=== PATIENT | male | born 1940 | race African-American/Black ===

== ENCOUNTER 2020-12-05 15:15 | Inpatient (IN) ==
[2020-12-05 17:12] LABS: Basophils # 0.1 10*3/uL (0.0-0.2); Basophils % 1.1 % (0.0-0.8); Eosinophils # 0.4 10*3/uL (0.0-0.87); Eosinophils % 6.5 % (0.00-10.9); Hematocrit 44.7 VOL% (42.0-52.0); Immature Granulocytes % 0.4 %; Immature Granulocytes Absolute 0.02 #; Lymphocytes # 1.6 10*3/uL (1.4-4.0); Lymphocytes % 29.5 % (21.2-54.2); Mean Corpuscular HGB Conc 31.3 GM/DL (32-36); Mean Corpuscular Volume 95.5 FL (87-102); Mean Platelet Volume 9.9 FL (9.6-12.0); Monocytes % 8.2 % (1.7-12.7); Neutrophils % 54.3 % (38.7-73.9); Platelet Count 204 T/CUMM (130-400); Red Blood Count 4.68 MC/CUMM (3.8-5.5); Red Cell Distribution Width 13.4 % (9.3-17.3); White Blood Count 5.4 T/CUMM (4-12)
[2020-12-05 17:32] LABS: Alanine Aminotransferase 12 U/L (16-61); Albumin 3.6 G/DL (3.4-5.0); Alkaline Phosphatase 61 U/L (45-117); Aspartate Amino Transferase 16 U/L (0-37); Blood Urea Nitrogen 7 MG/DL (7-18); Calcium 8.9 MG/DL (8.5-10.1); Carbon Dioxide 29 MMOL/L (21-32); Estimated Glom Filtration Rate 89 ML/MIN; Glucose 91 MG/DL (74-106); Osmolality,Calculated 270.8 MOS/KG (273-304); Potassium 4.9 MMOL/L (3.5-5.1); Sodium 137 MMOL/L (136-145); Total Protein 7.4 G/DL (6.4-8.2)
[2020-12-05] MEDS ORDERED: DEXTROSE 50% 25 GM/50 ML VIAL IV PRN (20:06)
[2020-12-05] MEDS ORDERED: ACETAMINOPHEN 325 MG TABLET PO PRN (20:06)
[2020-12-05] MEDS ORDERED: ONDANSETRON 4 MG/2 ML VIAL IV PRN (20:06)
[2020-12-05] MEDS ORDERED: GLUCAGON 1 MG VIAL IM PRN (20:06)
[2020-12-05] MEDS: SODIUM CHLORIDE 0.9% 1,000 ML IV SCH (22:59)
[2020-12-05] MEDS: ENOXAPARIN 40 MG/0.4 ML SYRINGE SUBCUT SCH (22:59)
[2020-12-06 06:02] LABS: Basophils % 0.9 % (0.0-0.8); Eosinophils # 0.3 10*3/uL (0.0-0.87); Eosinophils % 7.4 % (0.00-10.9); Hematocrit 43.9 VOL% (42.0-52.0); Hemoglobin 14.2 GM/DL (14.0-18.0); Immature Granulocytes % 0.2 %; Immature Granulocytes Absolute 0.01 #; Lymphocytes # 1.2 10*3/uL (1.4-4.0); Lymphocytes % 27.5 % (21.2-54.2); Mean Corpuscular HGB Conc 32.3 GM/DL (32-36); Mean Corpuscular Volume 95.4 FL (87-102); Mean Platelet Volume 10.3 FL (9.6-12.0); Monocytes % 9.2 % (1.7-12.7); Neutrophils % 54.8 % (38.7-73.9); Platelet Count 194 T/CUMM (130-400); Red Cell Distribution Width 13.2 % (9.3-17.3); White Blood Count 4.3 T/CUMM (4-12)
[2020-12-06 06:12] LABS: Osmolality,Calculated 273.5 MOS/KG (273-304); Potassium 4.2 MMOL/L (3.5-5.1)
[2020-12-06] MEDS: SODIUM CHLORIDE 0.9% 1,000 ML IV SCH ×3 (06:44→15:44)
[2020-12-06] MEDS: DONEPEZIL 5 MG TABLET PO SCH (09:52)
[2020-12-06] MEDS: PANTOPRAZOLE 40 MG TABLET PO SCH (09:52)
[2020-12-06] MEDS: amLODIPine 2.5 MG TABLET PO SCH (09:57)
[2020-12-06] MEDS: MIDODRINE 2.5 MG TABLET PO SCH ×2 (15:44→20:34)
[2020-12-06] MEDS: ENOXAPARIN 40 MG/0.4 ML SYRINGE SUBCUT SCH (20:34)
[2020-12-07] MEDS ORDERED: LORazepam 2 MG/1 ML VIAL IV PRN (00:27)
[2020-12-07] MEDS ORDERED: LORazepam 2 MG/1 ML VIAL IM ONE (00:29)
[2020-12-07 05:06] LABS: Calcium 8.9 MG/DL (8.5-10.1); Osmolality,Calculated 271.8 MOS/KG (273-304); Potassium 4.1 MMOL/L (3.5-5.1)
[2020-12-07 05:10] LABS: Risk Ratio 3.18; VLDL Cholesterol 8.6 MG/DL
[2020-12-07] MEDS: SODIUM CHLORIDE 0.9% 1,000 ML IV SCH ×3 (07:03→21:54)
[2020-12-07] MEDS: MIDODRINE 2.5 MG TABLET PO SCH (09:17)
[2020-12-07] MEDS: DONEPEZIL 5 MG TABLET PO SCH (09:17)
[2020-12-07] MEDS: amLODIPine 2.5 MG TABLET PO SCH (09:17)
[2020-12-07] MEDS: PANTOPRAZOLE 40 MG TABLET PO SCH (09:17)
[2020-12-07] MEDS ORDERED: ZIPRASIDONE 20 MG/1 ML VIAL IM ONE (12:46)
[2020-12-07] MEDS: QUEtiapine 25 MG TABLET PO SCH (21:18)
[2020-12-07] MEDS: ENOXAPARIN 40 MG/0.4 ML SYRINGE SUBCUT SCH (21:18)
[2020-12-08] MEDS: hydrALAZINE 20 MG/1 ML VIAL IV PRN (00:26)
[2020-12-08] MEDS: SODIUM CHLORIDE 0.9% 1,000 ML IV SCH ×3 (00:50→18:09)
[2020-12-08 08:28] LABS: Calcium 9.4 MG/DL (8.5-10.1); Osmolality,Calculated 273.5 MOS/KG (273-304)
[2020-12-08 08:39] LABS: Basophils % 0.5 % (0.0-0.8); Eosinophils # 0.2 10*3/uL (0.0-0.87); Eosinophils % 3.5 % (0.00-10.9); Hematocrit 44.5 VOL% (42.0-52.0); Hemoglobin 14.4 GM/DL (14.0-18.0); Immature Granulocytes % 0.2 %; Immature Granulocytes Absolute 0.01 #; Lymphocytes # 0.8 10*3/uL (1.4-4.0); Lymphocytes % 14.6 % (21.2-54.2); Mean Corpuscular HGB Conc 32.4 GM/DL (32-36); Mean Corpuscular Volume 94.1 FL (87-102); Mean Platelet Volume 9.8 FL (9.6-12.0); Monocytes % 9.1 % (1.7-12.7); Neutrophils % 72.1 % (38.7-73.9); Platelet Count 198 T/CUMM (130-400); Red Blood Count 4.73 MC/CUMM (3.8-5.5); Red Cell Distribution Width 13.2 % (9.3-17.3); White Blood Count 5.5 T/CUMM (4-12)
[2020-12-08 08:42] LABS: Platelet Estimate Adequate
[2020-12-08] MEDS: PANTOPRAZOLE 40 MG TABLET PO SCH (09:45)
[2020-12-08] MEDS: amLODIPine 5 MG TABLET PO SCH (09:45)
[2020-12-08] MEDS: DONEPEZIL 5 MG TABLET PO SCH (09:45)
[2020-12-08] MEDS: FLUDROCORTISONE 0.1 MG TABLET PO SCH (10:13)
[2020-12-08] MEDS: ENOXAPARIN 40 MG/0.4 ML SYRINGE SUBCUT SCH (23:03)
[2020-12-08] MEDS: ZIPRASIDONE 20 MG/1 ML VIAL IM PRN (23:23)
[2020-12-09] MEDS: MEMANTINE 5 MG TABLET PO SCH ×3 (00:09→22:12)
[2020-12-09] MEDS: QUEtiapine 25 MG TABLET PO SCH (00:09)
[2020-12-09] MEDS: hydrALAZINE 20 MG/1 ML VIAL IV PRN (03:54)
[2020-12-09] MEDS: ZIPRASIDONE 20 MG/1 ML VIAL IM PRN (06:24)
[2020-12-09] MEDS: FLUDROCORTISONE 0.1 MG TABLET PO SCH (11:55)
[2020-12-09] MEDS: amLODIPine 5 MG TABLET PO SCH (11:55)
[2020-12-09] MEDS: PANTOPRAZOLE 40 MG TABLET PO SCH (11:56)
[2020-12-09] MEDS: ENOXAPARIN 40 MG/0.4 ML SYRINGE SUBCUT SCH (22:12)
[2020-12-09] MEDS: risperiDONE 0.5 MG TABLET PO SCH (22:13)
[2020-12-10] MEDS: SODIUM CHLORIDE 0.9% 1,000 ML IV SCH ×3 (02:47→03:55)
[2020-12-10] MEDS: hydrALAZINE 20 MG/1 ML VIAL IV PRN (02:55)
[2020-12-10 06:25] LABS: Basophils % 0.6 % (0.0-0.8); Eosinophils % 0.6 % (0.00-10.9); Hematocrit 48.4 VOL% (42.0-52.0); Hemoglobin 15.4 GM/DL (14.0-18.0); Immature Granulocytes % 0.1 %; Immature Granulocytes Absolute 0.01 #; Lymphocytes # 0.8 10*3/uL (1.4-4.0); Lymphocytes % 12.4 % (21.2-54.2); Mean Corpuscular HGB Conc 31.8 GM/DL (32-36); Mean Corpuscular Volume 95.1 FL (87-102); Mean Platelet Volume 10.1 FL (9.6-12.0); Monocytes % 10.1 % (1.7-12.7); Neutrophils % 76.2 % (38.7-73.9); Platelet Count 212 T/CUMM (130-400); Red Blood Count 5.09 MC/CUMM (3.8-5.5); Red Cell Distribution Width 13.6 % (9.3-17.3); White Blood Count 6.8 T/CUMM (4-12)
[2020-12-10 06:40] LABS: Calcium 9.6 MG/DL (8.5-10.1); Osmolality,Calculated 291.4 MOS/KG (273-304); Potassium 3.8 MMOL/L (3.5-5.1)
[2020-12-10] MEDS: amLODIPine 5 MG TABLET PO SCH (09:36)
[2020-12-10] MEDS: MEMANTINE 5 MG TABLET PO SCH ×2 (09:36→21:00)
[2020-12-10] MEDS: PANTOPRAZOLE 40 MG TABLET PO SCH (09:36)
[2020-12-10] MEDS: FLUDROCORTISONE 0.1 MG TABLET PO SCH (09:36)
[2020-12-10 11:35] LABS: Calcium 9.4 MG/DL (8.5-10.1); Osmolality,Calculated 285.8 MOS/KG (273-304); Potassium 3.8 MMOL/L (3.5-5.1)
[2020-12-10] MEDS: risperiDONE 0.5 MG TABLET PO SCH (21:00)
[2020-12-10] MEDS: ENOXAPARIN 40 MG/0.4 ML SYRINGE SUBCUT SCH (21:00)
[2020-12-11] MEDS: hydrALAZINE 20 MG/1 ML VIAL IV PRN (03:33)
[2020-12-11 05:50] LABS: Basophils % 0.6 % (0.0-0.8); Eosinophils # 0.1 10*3/uL (0.0-0.87); Eosinophils % 1.4 % (0.00-10.9); Hematocrit 47.6 VOL% (42.0-52.0); Hemoglobin 14.9 GM/DL (14.0-18.0); Immature Granulocytes % 0.3 %; Immature Granulocytes Absolute 0.02 #; Lymphocytes # 1.7 10*3/uL (1.4-4.0); Lymphocytes % 26.7 % (21.2-54.2); Mean Corpuscular HGB Conc 31.3 GM/DL (32-36); Monocytes % 14.8 % (1.7-12.7); Neutrophils % 56.2 % (38.7-73.9); Platelet Count 196 T/CUMM (130-400); Red Blood Count 4.96 MC/CUMM (3.8-5.5); Red Cell Distribution Width 13.6 % (9.3-17.3); White Blood Count 6.4 T/CUMM (4-12)
[2020-12-11 06:12] LABS: Calcium 9.7 MG/DL (8.5-10.1); Osmolality,Calculated 288.7 MOS/KG (273-304); Potassium 4.2 MMOL/L (3.5-5.1)
[2020-12-11] MEDS: MEMANTINE 5 MG TABLET PO SCH ×2 (09:44→20:53)
[2020-12-11] MEDS: amLODIPine 5 MG TABLET PO SCH (09:44)
[2020-12-11] MEDS: FLUDROCORTISONE 0.1 MG TABLET PO SCH (09:44)
[2020-12-11] MEDS: PANTOPRAZOLE 40 MG TABLET PO SCH (09:44)
[2020-12-11] MEDS: risperiDONE 0.5 MG TABLET PO SCH (20:53)
[2020-12-11] MEDS: ENOXAPARIN 40 MG/0.4 ML SYRINGE SUBCUT SCH (20:53)
[2020-12-12] MEDS: ZIPRASIDONE 20 MG/1 ML VIAL IM PRN (02:46)
[2020-12-12 05:52] LABS: Basophils % 0.6 % (0.0-0.8); Eosinophils # 0.1 10*3/uL (0.0-0.87); Eosinophils % 2.1 % (0.00-10.9); Hematocrit 43.8 VOL% (42.0-52.0); Immature Granulocytes % 0.2 %; Immature Granulocytes Absolute 0.01 #; Lymphocytes # 1.2 10*3/uL (1.4-4.0); Lymphocytes % 24.8 % (21.2-54.2); Mean Corpuscular Volume 96.7 FL (87-102); Mean Platelet Volume 10.5 FL (9.6-12.0); Monocytes % 12.2 % (1.7-12.7); Neutrophils % 60.1 % (38.7-73.9); Platelet Count 189 T/CUMM (130-400); Red Blood Count 4.53 MC/CUMM (3.8-5.5); Red Cell Distribution Width 13.5 % (9.3-17.3); White Blood Count 4.7 T/CUMM (4-12)
[2020-12-12 06:10] LABS: Calcium 9.3 MG/DL (8.5-10.1); Osmolality,Calculated 281.3 MOS/KG (273-304); Potassium 3.4 MMOL/L (3.5-5.1)
[2020-12-12] MEDS: FLUDROCORTISONE 0.1 MG TABLET PO SCH ×2 (09:56→12:26)
[2020-12-12] MEDS: MEMANTINE 5 MG TABLET PO SCH ×3 (09:56→22:29)
[2020-12-12] MEDS: PANTOPRAZOLE 40 MG TABLET PO SCH ×2 (09:57→12:27)
[2020-12-12] MEDS: amLODIPine 5 MG TABLET PO SCH ×2 (09:57→12:27)
[2020-12-12] MEDS ORDERED: POTASSIUM CHLORIDE RIDER 10 MEQ/100 ML PREMIX IV PRN (11:43)
[2020-12-12] MEDS: ENOXAPARIN 40 MG/0.4 ML SYRINGE SUBCUT SCH (22:29)
[2020-12-12] MEDS: risperiDONE 0.5 MG TABLET PO SCH (22:30)
[2020-12-13 05:30] LABS: Basophils % 0.5 % (0.0-0.8); Eosinophils # 0.1 10*3/uL (0.0-0.87); Eosinophils % 2.2 % (0.00-10.9); Hematocrit 47.6 VOL% (42.0-52.0); Hemoglobin 14.8 GM/DL (14.0-18.0); Immature Granulocytes % 0.4 %; Immature Granulocytes Absolute 0.02 #; Lymphocytes # 1.2 10*3/uL (1.4-4.0); Lymphocytes % 21.1 % (21.2-54.2); Mean Corpuscular HGB Conc 31.1 GM/DL (32-36); Mean Corpuscular Volume 97.3 FL (87-102); Mean Platelet Volume 10.7 FL (9.6-12.0); Monocytes % 11.3 % (1.7-12.7); Neutrophils % 64.5 % (38.7-73.9); Platelet Count 203 T/CUMM (130-400); Red Blood Count 4.89 MC/CUMM (3.8-5.5); Red Cell Distribution Width 13.2 % (9.3-17.3); White Blood Count 5.5 T/CUMM (4-12)
[2020-12-13 05:54] LABS: Calcium 9.2 MG/DL (8.5-10.1); Osmolality,Calculated 280.4 MOS/KG (273-304); Potassium 4.1 MMOL/L (3.5-5.1)
[2020-12-13] MEDS: FLUDROCORTISONE 0.1 MG TABLET PO SCH (14:32)
[2020-12-13] MEDS: MEMANTINE 5 MG TABLET PO SCH ×2 (14:32→20:45)
[2020-12-13] MEDS: amLODIPine 5 MG TABLET PO SCH (14:33)
[2020-12-13] MEDS: PANTOPRAZOLE 40 MG TABLET PO SCH (14:33)
[2020-12-13] MEDS: risperiDONE 0.5 MG TABLET PO SCH (20:45)
[2020-12-13] MEDS: ENOXAPARIN 40 MG/0.4 ML SYRINGE SUBCUT SCH (20:55)
[2020-12-14 06:01] LABS: Basophils % 0.9 % (0.0-0.8); Eosinophils # 0.2 10*3/uL (0.0-0.87); Eosinophils % 3.3 % (0.00-10.9); Hematocrit 44.3 VOL% (42.0-52.0); Hemoglobin 14.5 GM/DL (14.0-18.0); Immature Granulocytes % 0.4 %; Immature Granulocytes Absolute 0.02 #; Lymphocytes # 1.3 10*3/uL (1.4-4.0); Lymphocytes % 28.2 % (21.2-54.2); Mean Corpuscular HGB Conc 32.7 GM/DL (32-36); Mean Corpuscular Volume 94.7 FL (87-102); Mean Platelet Volume 10.4 FL (9.6-12.0); Monocytes % 10.6 % (1.7-12.7); Neutrophils % 56.6 % (38.7-73.9); Platelet Count 178 T/CUMM (130-400); Red Blood Count 4.68 MC/CUMM (3.8-5.5); White Blood Count 4.5 T/CUMM (4-12)
[2020-12-14 06:23] LABS: Osmolality,Calculated 276.5 MOS/KG (273-304); Potassium 3.5 MMOL/L (3.5-5.1)
[2020-12-14] MEDS: amLODIPine 5 MG TABLET PO SCH (10:06)
[2020-12-14] MEDS: MEMANTINE 5 MG TABLET PO SCH ×2 (10:06→20:24)
[2020-12-14] MEDS: PANTOPRAZOLE 40 MG TABLET PO SCH (10:06)
[2020-12-14] MEDS: FLUDROCORTISONE 0.1 MG TABLET PO SCH (10:06)
[2020-12-14] MEDS: risperiDONE 0.5 MG TABLET PO SCH (20:24)
[2020-12-14] MEDS: ENOXAPARIN 40 MG/0.4 ML SYRINGE SUBCUT SCH (20:25)
[2020-12-15 06:32] LABS: Basophils % 0.7 % (0.0-0.8); Eosinophils # 0.2 10*3/uL (0.0-0.87); Eosinophils % 3.5 % (0.00-10.9); Hematocrit 40.1 VOL% (42.0-52.0); Immature Granulocytes % 0.2 %; Immature Granulocytes Absolute 0.01 #; Lymphocytes # 1.1 10*3/uL (1.4-4.0); Lymphocytes % 25.9 % (21.2-54.2); Mean Corpuscular HGB Conc 32.4 GM/DL (32-36); Mean Corpuscular Volume 94.1 FL (87-102); Mean Platelet Volume 10.9 FL (9.6-12.0); Monocytes % 9.7 % (1.7-12.7); Platelet Count 177 T/CUMM (130-400); Red Blood Count 4.26 MC/CUMM (3.8-5.5); Red Cell Distribution Width 13.1 % (9.3-17.3); White Blood Count 4.3 T/CUMM (4-12)
[2020-12-15 07:00] LABS: Calcium 8.7 MG/DL (8.5-10.1); Osmolality,Calculated 275.7 MOS/KG (273-304); Potassium 3.3 MMOL/L (3.5-5.1)
[2020-12-15] MEDS: amLODIPine 5 MG TABLET PO SCH (09:01)
[2020-12-15] MEDS: MEMANTINE 5 MG TABLET PO SCH (09:01)
[2020-12-15] MEDS: PANTOPRAZOLE 40 MG TABLET PO SCH (09:01)
[2020-12-15] MEDS: FLUDROCORTISONE 0.1 MG TABLET PO SCH (09:01)
[2020-12-15] MEDS ORDERED: TUBERCULIN SKIN TEST 0.1 ML SYRINGE INTRADERM ONE (15:00)
[2020-12-15] MEDS: POTASSIUM CHLORIDE 20 MEQ TABLET PO PRN ×3 (16:14→18:18)
[2020-12-15] MEDS: ZIPRASIDONE 20 MG/1 ML VIAL IM PRN (23:05)
[2020-12-16] MEDS: MEMANTINE 5 MG TABLET PO SCH ×2 (07:30→09:36)
[2020-12-16] MEDS: risperiDONE 0.5 MG TABLET PO SCH (07:30)
[2020-12-16] MEDS: ENOXAPARIN 40 MG/0.4 ML SYRINGE SUBCUT SCH (07:30)
[2020-12-16 07:59] LABS: Basophils % 0.8 % (0.0-0.8); Eosinophils # 0.1 10*3/uL (0.0-0.87); Eosinophils % 2.8 % (0.00-10.9); Hematocrit 43.3 VOL% (42.0-52.0); Hemoglobin 14.1 GM/DL (14.0-18.0); Immature Granulocytes % 0.2 %; Immature Granulocytes Absolute 0.01 #; Lymphocytes # 1.2 10*3/uL (1.4-4.0); Lymphocytes % 22.6 % (21.2-54.2); Mean Corpuscular HGB Conc 32.6 GM/DL (32-36); Mean Corpuscular Volume 93.9 FL (87-102); Mean Platelet Volume 10.7 FL (9.6-12.0); Monocytes % 10.2 % (1.7-12.7); Neutrophils % 63.4 % (38.7-73.9); Platelet Count 185 T/CUMM (130-400); Red Blood Count 4.61 MC/CUMM (3.8-5.5); Red Cell Distribution Width 12.9 % (9.3-17.3); White Blood Count 5.1 T/CUMM (4-12)
[2020-12-16 08:18] LABS: Osmolality,Calculated 272.8 MOS/KG (273-304); Potassium 3.7 MMOL/L (3.5-5.1)
[2020-12-16] MEDS: amLODIPine 5 MG TABLET PO SCH (09:36)
[2020-12-16] MEDS: PANTOPRAZOLE 40 MG TABLET PO SCH (09:36)
[2020-12-16] MEDS: FLUDROCORTISONE 0.1 MG TABLET PO SCH (09:36)
[2020-12-16 16:00] VITALS: BP 118/75
== END 2020-12-16 18:14 | DRG 312 ==
LOC: N.ED 15:15 → N.EDINP 15:15 → N.TELES 21:00 → SUATTDRO 12-07 15:29 → N.TELES 12-07 17:35
PROVIDERS: ADMIT Hospitalist; ATTEND Internal Medicine

== ENCOUNTER 2021-03-17 14:59 | Inpatient (IN) ==
[2021-03-17] MEDS ORDERED: SODIUM CHLORIDE 0.9% 500 ML IV STA (18:24)
[2021-03-17 19:26] LABS: ABG Base Excess 0.7 MMOL/L (-2.5-2.5); ABG Oxygen Saturation 95.5 % (95-100); ABG PCO2 44.4 MM HG (35-48); ABG PO2 84.1 MM HG (80-95); ABG TCO2 22.4 MMOL/L (23-27); Allen Test Positive; Pt O2 Delivery Device Room Air
[2021-03-17 19:44] LABS: Basophils % 0.2 % (0.0-0.8); Eosinophils # 0.1 10*3/uL (0.0-0.87); Eosinophils % 1.2 % (0.00-10.9); Hematocrit 49.4 VOL% (42.0-52.0); Hemoglobin 15.6 GM/DL (14.0-18.0); Immature Granulocytes % 0.5 %; Immature Granulocytes Absolute 0.03 #; Lymphocytes # 0.4 10*3/uL (1.4-4.0); Mean Corpuscular HGB Conc 31.6 GM/DL (32-36); Mean Platelet Volume 12.4 FL (9.6-12.0); Monocytes % 7.4 % (1.7-12.7); Neutrophils % 84.7 % (38.7-73.9); Platelet Count 99 T/CUMM (130-400); Red Blood Count 5.31 MC/CUMM (3.8-5.5); White Blood Count 6.7 T/CUMM (4-12)
[2021-03-17 20:10] LABS: Band Neutrophils 5 % (0-10); Lymphocytes 6 % (20-55); Segmented Neutrophils 83 % (50-85); Total Cells Counted 100
[2021-03-17 20:12] LABS: Platelet Estimate Decreased
[2021-03-17 20:15] LABS: Alanine Aminotransferase 89 U/L (16-61); Albumin 2.7 G/DL (3.4-5.0); Alkaline Phosphatase 92 U/L (45-117); Aspartate Amino Transferase 99 U/L (0-37); Blood Urea Nitrogen 21 MG/DL (7-18); Calcium 9.6 MG/DL (8.5-10.1); Carbon Dioxide 27 MMOL/L (21-32); Estimated Glom Filtration Rate 81 ML/MIN; Ferritin 626.3 ng/mL (26-388); Glucose 77 MG/DL (74-106); Potassium 4.2 MMOL/L (3.5-5.1); Sodium 143 MMOL/L (136-145); Total Protein 7.9 G/DL (6.4-8.2)
[2021-03-17 20:51] LABS: Barbiturates Screen,Urine Negative (Negative); Benzodiazepines Screen,Urine Negative (Negative); Cannabinoid Screen,Urine Negative (Negative); Opiate Screen,Urine Negative (Negative); Phencyclidine Screen,Urine Negative (Negative)
[2021-03-17 20:54] LABS: Bacteria,Urine Moderate /HPF (Few); Bilirubin,Urine Negative (Negative); Blood, Urine Moderate mg/dL (Negative); Glucose,Urine (UA) Negative (Negative); Hyaline Casts,Urine 4 /LPF (0-3); Ketones,Urine 20 mg/dL (Negative); Mucus,Urine Occasional /LPF (Occasional); Nitrite,Urine Positive (Negative); Protein,Urine Negative; Urine Appearance Slightly Hazy (Clear); Urine Color Yellow (Yellow); Urine Specific Gravity 1.016 (1.001-1.035); Urine Urobilinogen < 2.0 EU/DL (<2.0)
[2021-03-17] MEDS ORDERED: LEVOFLOXACIN INJ 750 MG/150 ML PREMIX IV STA (21:13)
[2021-03-17 21:25] LABS: INR 1.2
[2021-03-17] MEDS ORDERED: ONDANSETRON 4 MG/2 ML VIAL IV PRN (22:07)
[2021-03-17] MEDS ORDERED: MAGNESIUM SULF RIDER 2 GM/50 ML PREMIX IV PRN (22:07)
[2021-03-17] MEDS ORDERED: GLUCAGON 1 MG VIAL IM PRN (22:07)
[2021-03-17] MEDS ORDERED: hydrALAZINE 20 MG/1 ML VIAL IV PRN (22:07)
[2021-03-17] MEDS ORDERED: MAGNESIUM SULF RIDER 4 GM/100 ML PREMIX IV PRN (22:07)
[2021-03-17] MEDS ORDERED: POTASSIUM CHLORIDE 20 MEQ TABLET PO PRN (22:14)
[2021-03-17] MEDS ORDERED: POTASSIUM CHLORIDE RIDER 10 MEQ/100 ML PREMIX IV PRN (22:14)
[2021-03-17] MEDS ORDERED: DEXTROSE 50% 25 GM/50 ML SYRINGE IV PRN (22:26)
[2021-03-17] MEDS: ENOXAPARIN 40 MG/0.4 ML SYRINGE SUBCUT SCH (23:06)
[2021-03-17] MEDS: DEXTROSE 5% NACL 0.45% 1,000 ML IV SCH (23:07)
[2021-03-17] MEDS ORDERED: ALBUTEROL/IPRATROPIUM 3 ML NEB RESP TX ONE (23:14)
[2021-03-18] MEDS ORDERED: ALBUTEROL/IPRATROPIUM 3 ML NEB RESP TX SCH (01:00)
[2021-03-18 04:59] LABS: Basophils % 0.1 % (0.0-0.8); Eosinophils # 0.1 10*3/uL (0.0-0.87); Eosinophils % 0.9 % (0.00-10.9); Hematocrit 48.4 VOL% (42.0-52.0); Hemoglobin 15.2 GM/DL (14.0-18.0); Immature Granulocytes % 0.4 %; Immature Granulocytes Absolute 0.03 #; Lymphocytes # 0.3 10*3/uL (1.4-4.0); Lymphocytes % 3.7 % (21.2-54.2); Mean Corpuscular HGB Conc 31.4 GM/DL (32-36); Mean Corpuscular Volume 92.9 FL (87-102); Mean Platelet Volume 12.1 FL (9.6-12.0); Monocytes % 5.3 % (1.7-12.7); Neutrophils % 89.6 % (38.7-73.9); Platelet Count 84 T/CUMM (130-400); Red Blood Count 5.21 MC/CUMM (3.8-5.5); Red Cell Distribution Width 14.1 % (9.3-17.3); White Blood Count 7.6 T/CUMM (4-12)
[2021-03-18 05:19] LABS: Albumin 2.6 G/DL (3.4-5.0); Bilirubin,Total 0.7 MG/DL (0.20-1.00); Calcium 9.7 MG/DL (8.5-10.1); Osmolality,Calculated 283.3 MOS/KG (273-304); Potassium 4.4 MMOL/L (3.5-5.1); Total Protein 7.7 G/DL (6.4-8.2)
[2021-03-18 05:23] LABS: Band Neutrophils 1 % (0-10); Lymphocytes 2 % (20-55); Platelet Estimate Decreased; Segmented Neutrophils 95 % (50-85); Total Cells Counted 100
[2021-03-18 05:24] LABS: Albumin 2.6 G/DL (3.4-5.0); Bilirubin,Direct 0.13 MG/DL (0.0-0.20); Bilirubin,Indirect 0.5 MG/DL (0.0-1.0); Bilirubin,Total 0.6 MG/DL (0.20-1.00); Total Protein 7.6 G/DL (6.4-8.2)
[2021-03-18 07:09] LABS: Hepatitis B Core IgM Quant 0.15 Index; Hepatitis B Surface Ag Quant < 0.10 Index; Hepatitis B Surface Ag Result Non-Reactive (NonReactive); Hepatitis C Virus Ab Quant 0.04 Index; Hepatitis C Virus Ab Result Non-Reactive (NonReactive)
[2021-03-18] MEDS: ALBUTEROL INHALER 18 GM INH SCH ×3 (09:43→20:48)
[2021-03-18] MEDS: PANTOPRAZOLE 40 MG VIAL IV SCH (11:16)
[2021-03-18] MEDS ORDERED: LEVOFLOXACIN INJ 750 MG/150 ML PREMIX IV SCH (21:00)
[2021-03-18] MEDS: ENOXAPARIN 40 MG/0.4 ML SYRINGE SUBCUT SCH (23:04)
[2021-03-19] MEDS: ALBUTEROL INHALER 18 GM INH SCH ×3 (01:41→20:23)
[2021-03-19] MEDS: DEXTROSE 5% NACL 0.45% 1,000 ML IV SCH ×3 (03:36→18:35)
[2021-03-19 04:01] LABS: Basophils % 0.1 % (0.0-0.8); Eosinophils % 0.4 % (0.00-10.9); Hematocrit 45.3 VOL% (42.0-52.0); Hemoglobin 14.4 GM/DL (14.0-18.0); Immature Granulocytes % 0.8 %; Immature Granulocytes Absolute 0.06 #; Lymphocytes # 0.2 10*3/uL (1.4-4.0); Lymphocytes % 3.1 % (21.2-54.2); Mean Corpuscular HGB Conc 31.8 GM/DL (32-36); Mean Corpuscular Volume 91.7 FL (87-102); Mean Platelet Volume 12.4 FL (9.6-12.0); Monocytes % 3.7 % (1.7-12.7); NRBC # 0.02 10*3/uL; Neutrophils % 91.9 % (38.7-73.9); Platelet Count 91 T/CUMM (130-400); Red Blood Count 4.94 MC/CUMM (3.8-5.5); Red Cell Distribution Width 14.1 % (9.3-17.3); White Blood Count 7.5 T/CUMM (4-12)
[2021-03-19 04:20] LABS: Band Neutrophils 3 % (0-10); Eosinophils 1 % (0-10); Lymphocytes 3 % (20-55); Nucleated Red Blood Cells 1 (0-5); Platelet Estimate Decreased; Segmented Neutrophils 91 % (50-85); Total Cells Counted 100
[2021-03-19 04:44] LABS: Albumin 2.3 G/DL (3.4-5.0); Bilirubin,Total 0.5 MG/DL (0.20-1.00); Calcium 9.4 MG/DL (8.5-10.1); Osmolality,Calculated 286.1 MOS/KG (273-304); Potassium 3.8 MMOL/L (3.5-5.1)
[2021-03-19] MEDS: SODIUM CHLORIDE 0.9% 1,000 ML IV SCH ×2 (12:00→20:25)
[2021-03-19] MEDS ORDERED: REMDESIVIR 200 MG in SODIUM CHLORIDE 0.9% 210 ML IV ONE (12:30)
[2021-03-19] MEDS: PANTOPRAZOLE 40 MG VIAL IV SCH (13:25)
[2021-03-19] MEDS: DEXAMETHASONE 4 MG/1 ML VIAL IV SCH (13:30)
[2021-03-19] MEDS: VANCOMYCIN INJ 1,000 MG in SODIUM CHLORIDE 0.9% 250 ML IV SCH ×2 (13:50→23:54)
[2021-03-19] MEDS: MEROPENEM 500 MG in SODIUM CHLORIDE 0.9% 100 ML IV SCH ×3 (13:50→23:12)
[2021-03-19] MEDS: ENOXAPARIN 40 MG/0.4 ML SYRINGE SUBCUT SCH (23:12)
[2021-03-20] MEDS: ALBUTEROL INHALER 18 GM INH SCH ×4 (00:04→20:54)
[2021-03-20 05:37] LABS: Basophils % 0.2 % (0.0-0.8); Hematocrit 43.6 VOL% (42.0-52.0); Hemoglobin 13.8 GM/DL (14.0-18.0); Immature Granulocytes % 0.5 %; Immature Granulocytes Absolute 0.03 #; Lymphocytes # 0.3 10*3/uL (1.4-4.0); Lymphocytes % 4.7 % (21.2-54.2); Mean Corpuscular HGB Conc 31.7 GM/DL (32-36); Mean Corpuscular Volume 91.8 FL (87-102); Mean Platelet Volume 13.2 FL (9.6-12.0); NRBC # 0.02 10*3/uL; Neutrophils % 90.6 % (38.7-73.9); Platelet Count 88 T/CUMM (130-400); Red Blood Count 4.75 MC/CUMM (3.8-5.5); Red Cell Distribution Width 14.3 % (9.3-17.3); White Blood Count 5.5 T/CUMM (4-12)
[2021-03-20] MEDS: MEROPENEM 500 MG in SODIUM CHLORIDE 0.9% 100 ML IV SCH ×3 (05:40→17:51)
[2021-03-20] MEDS: SODIUM CHLORIDE 0.9% 1,000 ML IV SCH ×2 (05:40→15:59)
[2021-03-20 05:58] LABS: Albumin 2.1 G/DL (3.4-5.0); Bilirubin,Total 0.6 MG/DL (0.20-1.00); Calcium 9.2 MG/DL (8.5-10.1); Potassium 3.8 MMOL/L (3.5-5.1); Total Protein 6.8 G/DL (6.4-8.2)
[2021-03-20 06:15] LABS: Anisocytosis Slight; Band Neutrophils 18 % (0-10); Burr Cells Few; Lymphocytes 6 % (20-55); Macrocytosis Slight; Nucleated Red Blood Cells 1 (0-5); Platelet Estimate Decreased; Segmented Neutrophils 72 % (50-85); Total Cells Counted 100
[2021-03-20] MEDS: PANTOPRAZOLE 40 MG VIAL IV SCH (09:36)
[2021-03-20] MEDS: ZINC GLUCONATE 50 MG TABLET PO SCH (09:36)
[2021-03-20] MEDS: DEXAMETHASONE 4 MG/1 ML VIAL IV SCH (09:36)
[2021-03-20] MEDS: ASCORBIC ACID 500 MG TABLET PO SCH ×2 (09:36→20:54)
[2021-03-20] MEDS: CHOLECALCIFEROL 1,000 UNIT TABLET PO SCH (09:36)
[2021-03-20] MEDS: REMDESIVIR 100 MG in SODIUM CHLORIDE 0.9% 100 ML IV SCH (11:33)
[2021-03-20] MEDS ORDERED: SODIUM CHLORIDE 0.9% 500 ML IV ONE (12:47)
[2021-03-20] MEDS: VANCOMYCIN INJ 1,000 MG in SODIUM CHLORIDE 0.9% 250 ML IV SCH (17:52)
[2021-03-20] MEDS: ENOXAPARIN 40 MG/0.4 ML SYRINGE SUBCUT SCH (22:04)
[2021-03-21] MEDS: MEROPENEM 500 MG in SODIUM CHLORIDE 0.9% 100 ML IV SCH ×5 (00:22→23:10)
[2021-03-21] MEDS: SODIUM CHLORIDE 0.9% 1,000 ML IV SCH (01:08)
[2021-03-21] MEDS: ALBUTEROL INHALER 18 GM INH SCH ×4 (01:08→18:04)
[2021-03-21 05:05] LABS: Basophils % 0.2 % (0.0-0.8); Hematocrit 42.6 VOL% (42.0-52.0); Hemoglobin 13.4 GM/DL (14.0-18.0); Immature Granulocytes % 0.5 %; Immature Granulocytes Absolute 0.03 #; Lymphocytes # 0.4 10*3/uL (1.4-4.0); Lymphocytes % 5.8 % (21.2-54.2); Mean Corpuscular HGB Conc 31.5 GM/DL (32-36); Mean Corpuscular Volume 91.6 FL (87-102); Mean Platelet Volume 12.7 FL (9.6-12.0); Monocytes % 4.5 % (1.7-12.7); NRBC # 0.02 10*3/uL; Platelet Count 95 T/CUMM (130-400); Red Blood Count 4.65 MC/CUMM (3.8-5.5); Red Cell Distribution Width 14.6 % (9.3-17.3)
[2021-03-21 05:21] LABS: Ferritin 1071.9 ng/mL (26-388)
[2021-03-21 06:36] LABS: Band Neutrophils 2 % (0-10); Lymphocytes 5 % (20-55); Nucleated Red Blood Cells 1 (0-5); Segmented Neutrophils 88 % (50-85); Total Cells Counted 100
[2021-03-21 06:37] LABS: Platelet Estimate Adequate; Spherocytes Few
[2021-03-21 07:02] LABS: Albumin 1.7 G/DL (3.4-5.0); Bilirubin,Total 0.7 MG/DL (0.20-1.00); Calcium 9.4 MG/DL (8.5-10.1); Osmolality,Calculated 301.3 MOS/KG (273-304); Potassium 3.8 MMOL/L (3.5-5.1); Total Protein 6.6 G/DL (6.4-8.2)
[2021-03-21] MEDS ORDERED: LACTATED RINGERS 1,000 ML IV SCH (08:00)
[2021-03-21] MEDS: PANTOPRAZOLE 40 MG VIAL IV SCH (08:31)
[2021-03-21] MEDS: DEXAMETHASONE 4 MG/1 ML VIAL IV SCH (08:34)
[2021-03-21] MEDS: REMDESIVIR 100 MG in SODIUM CHLORIDE 0.9% 100 ML IV SCH (08:49)
[2021-03-21] MEDS: CHOLECALCIFEROL 1,000 UNIT TABLET PO SCH (08:50)
[2021-03-21] MEDS: ZINC GLUCONATE 50 MG TABLET PO SCH (08:50)
[2021-03-21] MEDS: ASCORBIC ACID 500 MG TABLET PO SCH ×2 (08:50→20:01)
[2021-03-21] MEDS: VANCOMYCIN INJ 1,000 MG in SODIUM CHLORIDE 0.9% 250 ML IV SCH (11:11)
[2021-03-21] MEDS: SODIUM CHLORIDE 0.45% 1,000 ML IV SCH (19:00)
[2021-03-21] MEDS: ENOXAPARIN 40 MG/0.4 ML SYRINGE SUBCUT SCH (23:10)
[2021-03-22 04:41] LABS: Basophils % 0.2 % (0.0-0.8); Hematocrit 43.5 VOL% (42.0-52.0); Hemoglobin 13.6 GM/DL (14.0-18.0); Immature Granulocytes % 0.4 %; Immature Granulocytes Absolute 0.02 #; Lymphocytes # 0.4 10*3/uL (1.4-4.0); Lymphocytes % 7.8 % (21.2-54.2); Mean Corpuscular HGB Conc 31.3 GM/DL (32-36); Mean Corpuscular Volume 93.1 FL (87-102); Mean Platelet Volume 12.6 FL (9.6-12.0); Monocytes % 6.2 % (1.7-12.7); NRBC # 0.02 10*3/uL; Neutrophils % 85.4 % (38.7-73.9); Platelet Count 95 T/CUMM (130-400); Red Blood Count 4.67 MC/CUMM (3.8-5.5); Red Cell Distribution Width 14.5 % (9.3-17.3); White Blood Count 5.2 T/CUMM (4-12)
[2021-03-22 05:00] LABS: Albumin 1.7 G/DL (3.4-5.0); Bilirubin,Total 0.7 MG/DL (0.20-1.00); Calcium 9.1 MG/DL (8.5-10.1); Osmolality,Calculated 302.3 MOS/KG (273-304); Potassium 3.9 MMOL/L (3.5-5.1); Total Protein 6.5 G/DL (6.4-8.2)
[2021-03-22 05:06] LABS: Ferritin 1106.8 ng/mL (26-388)
[2021-03-22] MEDS: SODIUM CHLORIDE 0.45% 1,000 ML IV SCH ×2 (05:19→08:11)
[2021-03-22] MEDS: MEROPENEM 500 MG in SODIUM CHLORIDE 0.9% 100 ML IV SCH ×3 (05:19→17:43)
[2021-03-22] MEDS: VANCOMYCIN INJ 1,000 MG in SODIUM CHLORIDE 0.9% 250 ML IV SCH (06:00)
[2021-03-22 07:35] LABS: Hypochromia Slight; Platelet Estimate Adequate
[2021-03-22] MEDS: ALBUTEROL INHALER 18 GM INH SCH ×4 (08:10→23:45)
[2021-03-22] MEDS: ZINC GLUCONATE 50 MG TABLET PO SCH (08:11)
[2021-03-22] MEDS: CHOLECALCIFEROL 1,000 UNIT TABLET PO SCH (08:11)
[2021-03-22] MEDS: ASCORBIC ACID 500 MG TABLET PO SCH ×2 (08:11→23:46)
[2021-03-22] MEDS: PANTOPRAZOLE 40 MG VIAL IV SCH (08:22)
[2021-03-22] MEDS: DEXAMETHASONE 4 MG/1 ML VIAL IV SCH (08:22)
[2021-03-22] MEDS: DEXTROSE 5% 1,000 ML IV SCH ×2 (12:15→23:43)
[2021-03-22] MEDS: REMDESIVIR 100 MG in SODIUM CHLORIDE 0.9% 100 ML IV SCH (12:22)
[2021-03-22] MEDS ORDERED: LACTULOSE 20 GM/30 ML UDCUP PO SCH (14:30)
[2021-03-22] MEDS: ENOXAPARIN 40 MG/0.4 ML SYRINGE SUBCUT SCH (21:55)
[2021-03-22] MEDS: LACTULOSE 320 GM/480 ML BOTTLE RECTAL SCH (21:55)
[2021-03-23] MEDS: MEROPENEM 500 MG in SODIUM CHLORIDE 0.9% 100 ML IV SCH ×2 (00:49→06:34)
[2021-03-23] MEDS: ALBUTEROL INHALER 18 GM INH SCH ×4 (01:44→22:45)
[2021-03-23 06:40] LABS: Basophils % 0.1 % (0.0-0.8); Eosinophils % 0.3 % (0.00-10.9); Hematocrit 42.8 VOL% (42.0-52.0); Hemoglobin 13.6 GM/DL (14.0-18.0); Immature Granulocytes % 1.1 %; Immature Granulocytes Absolute 0.08 #; Lymphocytes # 0.3 10*3/uL (1.4-4.0); Mean Corpuscular HGB Conc 31.8 GM/DL (32-36); Mean Corpuscular Volume 91.8 FL (87-102); Mean Platelet Volume 12.2 FL (9.6-12.0); Monocytes % 4.6 % (1.7-12.7); NRBC # 0.03 10*3/uL; Neutrophils % 89.9 % (38.7-73.9); Platelet Count 96 T/CUMM (130-400); Red Blood Count 4.66 MC/CUMM (3.8-5.5); Red Cell Distribution Width 14.3 % (9.3-17.3); White Blood Count 7.4 T/CUMM (4-12)
[2021-03-23 06:52] LABS: Ferritin 1058.4 ng/mL (26-388)
[2021-03-23 07:02] LABS: Albumin 1.8 G/DL (3.4-5.0); Bilirubin,Total 1.2 MG/DL (0.20-1.00); Calcium 8.9 MG/DL (8.5-10.1); Osmolality,Calculated 297.7 MOS/KG (273-304); Potassium 3.8 MMOL/L (3.5-5.1); Total Protein 6.4 G/DL (6.4-8.2)
[2021-03-23 07:10] LABS: Eosinophils 1 % (0-10); Hypochromia 1+; Lymphocytes 6 % (20-55); Nucleated Red Blood Cells 1 (0-5); Segmented Neutrophils 90 % (50-85); Total Cells Counted 100
[2021-03-23 07:11] LABS: Microcytosis 1+; Platelet Estimate Decreased; Target Cells Slight
[2021-03-23] MEDS: CHOLECALCIFEROL 1,000 UNIT TABLET PO SCH (08:47)
[2021-03-23] MEDS: LACTULOSE 320 GM/480 ML BOTTLE RECTAL SCH (08:47)
[2021-03-23] MEDS: ZINC GLUCONATE 50 MG TABLET PO SCH (08:47)
[2021-03-23] MEDS: PANTOPRAZOLE 40 MG VIAL IV SCH (08:47)
[2021-03-23] MEDS: ASCORBIC ACID 500 MG TABLET PO SCH ×2 (08:47→21:56)
[2021-03-23] MEDS: DEXTROSE 5% 1,000 ML IV SCH ×2 (08:48→17:38)
[2021-03-23] MEDS: DEXAMETHASONE 4 MG/1 ML VIAL IV SCH (08:49)
[2021-03-23] MEDS: REMDESIVIR 100 MG in SODIUM CHLORIDE 0.9% 100 ML IV SCH (09:07)
[2021-03-23] MEDS: ENOXAPARIN 100 MG/ML SYRINGE SUBCUT SCH (09:08)
[2021-03-23] MEDS: cefTRIAXone 1,000 MG in SODIUM CHLORIDE 0.9% 100 ML IV SCH (10:09)
[2021-03-23] MEDS: LACTULOSE 20 GM/30 ML UDCUP PO SCH ×2 (11:40→17:38)
[2021-03-23] MEDS: AZITHROMYCIN INJ 500 MG in SODIUM CHLORIDE 0.9% 250 ML IV SCH (15:06)
[2021-03-23] MEDS: MEMANTINE 5 MG TABLET PO SCH (21:56)
[2021-03-24] MEDS: LACTULOSE 20 GM/30 ML UDCUP PO SCH ×4 (00:35→17:27)
[2021-03-24] MEDS: ALBUTEROL INHALER 18 GM INH SCH ×4 (01:46→18:09)
[2021-03-24 05:05] LABS: Basophils % 0.2 % (0.0-0.8); Eosinophils # 0.1 10*3/uL (0.0-0.87); Eosinophils % 1.9 % (0.00-10.9); Hematocrit 42.9 VOL% (42.0-52.0); Immature Granulocytes % 1.2 %; Immature Granulocytes Absolute 0.05 #; Lymphocytes # 0.4 10*3/uL (1.4-4.0); Mean Corpuscular HGB Conc 30.3 GM/DL (32-36); Mean Corpuscular Volume 93.7 FL (87-102); Neutrophils % 77.7 % (38.7-73.9); Platelet Count 113 T/CUMM (130-400); Red Blood Count 4.58 MC/CUMM (3.8-5.5); Red Cell Distribution Width 14.4 % (9.3-17.3); White Blood Count 4.3 T/CUMM (4-12)
[2021-03-24 05:25] LABS: Calcium 8.1 MG/DL (8.5-10.1); Osmolality,Calculated 297.8 MOS/KG (273-304); Potassium 3.5 MMOL/L (3.5-5.1)
[2021-03-24] MEDS: DEXTROSE 5% 1,000 ML IV SCH ×3 (06:15→17:26)
[2021-03-24] MEDS: PANTOPRAZOLE 40 MG VIAL IV SCH (09:35)
[2021-03-24] MEDS: DEXAMETHASONE 4 MG/1 ML VIAL IV SCH (09:35)
[2021-03-24] MEDS: ENOXAPARIN 100 MG/ML SYRINGE SUBCUT SCH (09:35)
[2021-03-24] MEDS: MEMANTINE 5 MG TABLET PO SCH ×2 (09:36→20:17)
[2021-03-24] MEDS: ZINC GLUCONATE 50 MG TABLET PO SCH (09:36)
[2021-03-24] MEDS: ASCORBIC ACID 500 MG TABLET PO SCH ×2 (09:36→20:17)
[2021-03-24] MEDS: CHOLECALCIFEROL 1,000 UNIT TABLET PO SCH (09:36)
[2021-03-24] MEDS: FLUDROCORTISONE 0.1 MG TABLET PO SCH (09:37)
[2021-03-24] MEDS: cefTRIAXone 1,000 MG in SODIUM CHLORIDE 0.9% 100 ML IV SCH (11:39)
[2021-03-24] MEDS: amLODIPine 5 MG TABLET PO SCH (14:14)
[2021-03-24] MEDS: AZITHROMYCIN INJ 500 MG in SODIUM CHLORIDE 0.9% 250 ML IV SCH (14:18)
[2021-03-25] MEDS: LACTULOSE 20 GM/30 ML UDCUP PO SCH ×4 (00:22→18:14)
[2021-03-25] MEDS: DEXTROSE 5% 1,000 ML IV SCH ×2 (00:45→10:04)
[2021-03-25] MEDS: ALBUTEROL INHALER 18 GM INH SCH ×3 (05:08→21:58)
[2021-03-25 05:27] LABS: Basophils % 0.2 % (0.0-0.8); Eosinophils # 0.1 10*3/uL (0.0-0.87); Eosinophils % 1.3 % (0.00-10.9); Hematocrit 42.3 VOL% (42.0-52.0); Hemoglobin 13.1 GM/DL (14.0-18.0); Immature Granulocytes % 1.5 %; Immature Granulocytes Absolute 0.08 #; Lymphocytes # 0.7 10*3/uL (1.4-4.0); Lymphocytes % 12.1 % (21.2-54.2); Mean Platelet Volume 11.9 FL (9.6-12.0); Monocytes % 10.6 % (1.7-12.7); Neutrophils % 74.3 % (38.7-73.9); Platelet Count 107 T/CUMM (130-400); Red Cell Distribution Width 14.1 % (9.3-17.3); White Blood Count 5.4 T/CUMM (4-12)
[2021-03-25 08:02] LABS: Albumin 1.7 G/DL (3.4-5.0); Bilirubin,Total 0.7 MG/DL (0.20-1.00); Calcium 8.4 MG/DL (8.5-10.1); Potassium 3.6 MMOL/L (3.5-5.1); Total Protein 6.2 G/DL (6.4-8.2)
[2021-03-25] MEDS: ASCORBIC ACID 500 MG TABLET PO SCH ×2 (09:42→21:58)
[2021-03-25] MEDS: ZINC GLUCONATE 50 MG TABLET PO SCH (09:42)
[2021-03-25] MEDS: MEMANTINE 5 MG TABLET PO SCH ×2 (09:42→21:58)
[2021-03-25] MEDS: ENOXAPARIN 100 MG/ML SYRINGE SUBCUT SCH (09:43)
[2021-03-25] MEDS: amLODIPine 5 MG TABLET PO SCH (09:43)
[2021-03-25] MEDS: OMEPRAZOLE ODT 20 MG TABLET PER TUBE SCH (09:43)
[2021-03-25] MEDS: FLUDROCORTISONE 0.1 MG TABLET PO SCH (09:43)
[2021-03-25] MEDS: CHOLECALCIFEROL 1,000 UNIT TABLET PO SCH (09:43)
[2021-03-25] MEDS: DEXAMETHASONE 4 MG/1 ML VIAL IV SCH (09:44)
[2021-03-25] MEDS: cefTRIAXone 1,000 MG in SODIUM CHLORIDE 0.9% 100 ML IV SCH (10:03)
[2021-03-25] MEDS: AZITHROMYCIN INJ 500 MG in SODIUM CHLORIDE 0.9% 250 ML IV SCH (14:03)
[2021-03-26] MEDS: LACTULOSE 20 GM/30 ML UDCUP PO SCH ×4 (00:38→17:41)
[2021-03-26] MEDS: ALBUTEROL INHALER 18 GM INH SCH ×2 (04:24→21:27)
[2021-03-26 06:14] LABS: Basophils % 0.2 % (0.0-0.8); Eosinophils # 0.1 10*3/uL (0.0-0.87); Eosinophils % 1.3 % (0.00-10.9); Hematocrit 41.2 VOL% (42.0-52.0); Hemoglobin 13.3 GM/DL (14.0-18.0); Immature Granulocytes Absolute 0.06 #; Lymphocytes # 0.8 10*3/uL (1.4-4.0); Lymphocytes % 12.5 % (21.2-54.2); Mean Corpuscular HGB Conc 32.3 GM/DL (32-36); Mean Platelet Volume 12.7 FL (9.6-12.0); Monocytes % 10.2 % (1.7-12.7); Neutrophils % 74.8 % (38.7-73.9); Platelet Count 125 T/CUMM (130-400); Red Blood Count 4.63 MC/CUMM (3.8-5.5); Red Cell Distribution Width 13.7 % (9.3-17.3)
[2021-03-26 06:28] LABS: Albumin 1.8 G/DL (3.4-5.0); Bilirubin,Total 1.1 MG/DL (0.20-1.00); Calcium 8.2 MG/DL (8.5-10.1); Potassium 3.9 MMOL/L (3.5-5.1); Total Protein 6.4 G/DL (6.4-8.2)
[2021-03-26] MEDS: OMEPRAZOLE ODT 20 MG TABLET PER TUBE SCH (09:30)
[2021-03-26] MEDS: amLODIPine 5 MG TABLET PO SCH (09:30)
[2021-03-26] MEDS: CHOLECALCIFEROL 1,000 UNIT TABLET PO SCH (09:30)
[2021-03-26] MEDS: FLUDROCORTISONE 0.1 MG TABLET PO SCH (09:30)
[2021-03-26] MEDS: MEMANTINE 5 MG TABLET PO SCH ×2 (09:30→21:24)
[2021-03-26] MEDS: ZINC GLUCONATE 50 MG TABLET PO SCH (09:30)
[2021-03-26] MEDS: ASCORBIC ACID 500 MG TABLET PO SCH ×2 (09:30→21:24)
[2021-03-26] MEDS: ENOXAPARIN 100 MG/ML SYRINGE SUBCUT SCH (09:31)
[2021-03-26] MEDS: DEXAMETHASONE 4 MG/1 ML VIAL IV SCH (09:31)
[2021-03-26] MEDS: cefTRIAXone 1,000 MG in SODIUM CHLORIDE 0.9% 100 ML IV SCH (09:41)
[2021-03-26] MEDS: AZITHROMYCIN INJ 500 MG in SODIUM CHLORIDE 0.9% 250 ML IV SCH (14:17)
[2021-03-27] MEDS: LACTULOSE 20 GM/30 ML UDCUP PO SCH ×4 (00:37→18:33)
[2021-03-27 04:44] LABS: Basophils % 0.2 % (0.0-0.8); Eosinophils % 0.5 % (0.00-10.9); Hematocrit 40.6 VOL% (42.0-52.0); Hemoglobin 12.7 GM/DL (14.0-18.0); Immature Granulocytes % 1.1 %; Immature Granulocytes Absolute 0.07 #; Lymphocytes % 15.4 % (21.2-54.2); Mean Corpuscular HGB Conc 31.3 GM/DL (32-36); Mean Platelet Volume 12.2 FL (9.6-12.0); Monocytes % 11.5 % (1.7-12.7); Neutrophils % 71.3 % (38.7-73.9); Platelet Count 172 T/CUMM (130-400); Red Blood Count 4.46 MC/CUMM (3.8-5.5); Red Cell Distribution Width 13.9 % (9.3-17.3); White Blood Count 6.2 T/CUMM (4-12)
[2021-03-27 05:12] LABS: Albumin 1.8 G/DL (3.4-5.0); Bilirubin,Total 1.2 MG/DL (0.20-1.00); Calcium 8.3 MG/DL (8.5-10.1); Osmolality,Calculated 277.1 MOS/KG (273-304); Potassium 4.1 MMOL/L (3.5-5.1); Total Protein 6.3 G/DL (6.4-8.2)
[2021-03-27] MEDS: ENOXAPARIN 100 MG/ML SYRINGE SUBCUT SCH (08:31)
[2021-03-27] MEDS: MEMANTINE 5 MG TABLET PO SCH ×2 (08:32→21:44)
[2021-03-27] MEDS: FLUDROCORTISONE 0.1 MG TABLET PO SCH (08:32)
[2021-03-27] MEDS: OMEPRAZOLE ODT 20 MG TABLET PER TUBE SCH (08:32)
[2021-03-27] MEDS: ZINC GLUCONATE 50 MG TABLET PO SCH (08:32)
[2021-03-27] MEDS: CHOLECALCIFEROL 1,000 UNIT TABLET PO SCH (08:32)
[2021-03-27] MEDS: ASCORBIC ACID 500 MG TABLET PO SCH ×2 (08:32→21:44)
[2021-03-27] MEDS: DEXAMETHASONE 4 MG/1 ML VIAL IV SCH (08:32)
[2021-03-27] MEDS: amLODIPine 5 MG TABLET PO SCH (08:33)
[2021-03-27] MEDS: cefTRIAXone 1,000 MG in SODIUM CHLORIDE 0.9% 100 ML IV SCH (08:33)
[2021-03-27] MEDS: AZITHROMYCIN INJ 500 MG in SODIUM CHLORIDE 0.9% 250 ML IV SCH (14:49)
[2021-03-27] MEDS: ALBUTEROL INHALER 18 GM INH SCH (21:44)
[2021-03-28] MEDS: LACTULOSE 20 GM/30 ML UDCUP PO SCH ×4 (01:13→17:30)
[2021-03-28] MEDS: ALBUTEROL INHALER 18 GM INH SCH ×2 (02:40→18:52)
[2021-03-28] MEDS: DEXAMETHASONE 4 MG/1 ML VIAL IV SCH (09:22)
[2021-03-28] MEDS: ENOXAPARIN 100 MG/ML SYRINGE SUBCUT SCH (09:22)
[2021-03-28] MEDS: cefTRIAXone 1,000 MG in SODIUM CHLORIDE 0.9% 100 ML IV SCH (09:23)
[2021-03-28] MEDS: FLUDROCORTISONE 0.1 MG TABLET PO SCH (11:13)
[2021-03-28] MEDS: ASCORBIC ACID 500 MG TABLET PO SCH ×2 (11:14→21:14)
[2021-03-28] MEDS: MEMANTINE 5 MG TABLET PO SCH ×2 (11:14→21:14)
[2021-03-28] MEDS: OMEPRAZOLE ODT 20 MG TABLET PER TUBE SCH (11:14)
[2021-03-28] MEDS: CHOLECALCIFEROL 1,000 UNIT TABLET PO SCH (11:14)
[2021-03-28] MEDS: amLODIPine 5 MG TABLET PO SCH (11:14)
[2021-03-28] MEDS: ZINC GLUCONATE 50 MG TABLET PO SCH (11:15)
[2021-03-28] MEDS ORDERED: DEXTROSE 50% 25 GM/50 ML SYRINGE IV PRN (16:13)
[2021-03-28] MEDS: INSULIN REGULAR 100 UNIT/ML SUBCUT SCH (17:29)
[2021-03-29] MEDS: ALBUTEROL INHALER 18 GM INH SCH ×2 (01:19→02:04)
[2021-03-29] MEDS: LACTULOSE 20 GM/30 ML UDCUP PO SCH ×6 (01:19→23:00)
[2021-03-29] MEDS: INSULIN REGULAR 100 UNIT/ML SUBCUT SCH ×4 (02:48→17:24)
[2021-03-29 06:45] LABS: Basophils % 0.1 % (0.0-0.8); Eosinophils % 0.5 % (0.00-10.9); Hematocrit 40.9 VOL% (42.0-52.0); Immature Granulocytes % 0.6 %; Immature Granulocytes Absolute 0.05 #; Lymphocytes # 1.1 10*3/uL (1.4-4.0); Lymphocytes % 13.1 % (21.2-54.2); Mean Corpuscular HGB Conc 31.8 GM/DL (32-36); Mean Corpuscular Volume 89.9 FL (87-102); Mean Platelet Volume 12.7 FL (9.6-12.0); Monocytes % 7.8 % (1.7-12.7); Neutrophils % 77.9 % (38.7-73.9); Red Blood Count 4.55 MC/CUMM (3.8-5.5)
[2021-03-29 07:02] LABS: Calcium 9.2 MG/DL (8.5-10.1); Osmolality,Calculated 268.5 MOS/KG (273-304); Potassium 4.8 MMOL/L (3.5-5.1)
[2021-03-29 07:07] LABS: Platelet Count 259 T/CUMM (130-400); White Blood Count 8.7 T/CUMM (4-12)
[2021-03-29] MEDS: FLUDROCORTISONE 0.1 MG TABLET PO SCH (09:01)
[2021-03-29] MEDS: ENOXAPARIN 100 MG/ML SYRINGE SUBCUT SCH (09:01)
[2021-03-29] MEDS: MEMANTINE 5 MG TABLET PO SCH ×2 (09:01→23:01)
[2021-03-29] MEDS: amLODIPine 5 MG TABLET PO SCH (09:02)
[2021-03-29] MEDS: cefTRIAXone 1,000 MG in SODIUM CHLORIDE 0.9% 100 ML IV SCH (09:02)
[2021-03-29] MEDS: ZINC GLUCONATE 50 MG TABLET PO SCH (09:02)
[2021-03-29] MEDS: CHOLECALCIFEROL 1,000 UNIT TABLET PO SCH (09:02)
[2021-03-29] MEDS: ASCORBIC ACID 500 MG TABLET PO SCH ×2 (09:02→23:00)
[2021-03-29] MEDS: OMEPRAZOLE ODT 20 MG TABLET PER TUBE SCH (09:02)
[2021-03-30] MEDS: LACTULOSE 20 GM/30 ML UDCUP PO SCH ×6 (01:59→22:34)
[2021-03-30] MEDS: INSULIN REGULAR 100 UNIT/ML SUBCUT SCH ×4 (01:59→17:58)
[2021-03-30] MEDS: ALBUTEROL INHALER 18 GM INH SCH ×3 (02:08→12:20)
[2021-03-30 05:33] LABS: Basophils % 0.3 % (0.0-0.8); Eosinophils % 0.3 % (0.00-10.9); Hematocrit 39.2 VOL% (42.0-52.0); Hemoglobin 12.3 GM/DL (14.0-18.0); Immature Granulocytes % 0.5 %; Immature Granulocytes Absolute 0.04 #; Lymphocytes # 0.9 10*3/uL (1.4-4.0); Lymphocytes % 11.3 % (21.2-54.2); Mean Corpuscular HGB Conc 31.4 GM/DL (32-36); Mean Corpuscular Volume 91.8 FL (87-102); Mean Platelet Volume 11.8 FL (9.6-12.0); Monocytes % 8.7 % (1.7-12.7); Neutrophils % 78.9 % (38.7-73.9); Platelet Count 414 T/CUMM (130-400); Red Blood Count 4.27 MC/CUMM (3.8-5.5); Red Cell Distribution Width 14.3 % (9.3-17.3); White Blood Count 7.6 T/CUMM (4-12)
[2021-03-30 05:58] LABS: Osmolality,Calculated 272.5 MOS/KG (273-304); Potassium 4.6 MMOL/L (3.5-5.1)
[2021-03-30] MEDS: ASCORBIC ACID 500 MG TABLET PO SCH ×2 (09:25→22:34)
[2021-03-30] MEDS: ZINC GLUCONATE 50 MG TABLET PO SCH (09:25)
[2021-03-30] MEDS: MEMANTINE 5 MG TABLET PO SCH ×2 (09:25→22:34)
[2021-03-30] MEDS: amLODIPine 5 MG TABLET PO SCH (09:25)
[2021-03-30] MEDS: ENOXAPARIN 100 MG/ML SYRINGE SUBCUT SCH (09:25)
[2021-03-30] MEDS: FLUDROCORTISONE 0.1 MG TABLET PO SCH (09:25)
[2021-03-30] MEDS: cefTRIAXone 1,000 MG in SODIUM CHLORIDE 0.9% 100 ML IV SCH (09:25)
[2021-03-30] MEDS: CHOLECALCIFEROL 1,000 UNIT TABLET PO SCH (09:25)
[2021-03-30] MEDS: OMEPRAZOLE ODT 20 MG TABLET PER TUBE SCH (09:25)
[2021-03-31] MEDS: INSULIN REGULAR 100 UNIT/ML SUBCUT SCH ×5 (01:29→23:51)
[2021-03-31] MEDS: ALBUTEROL INHALER 18 GM INH SCH ×4 (01:30→23:51)
[2021-03-31] MEDS: LACTULOSE 20 GM/30 ML UDCUP PO SCH ×6 (01:31→22:07)
[2021-03-31 05:28] LABS: INR 2.5
[2021-03-31 05:29] LABS: PT Patient Result 26.1 SECS (10.5-12.0)
[2021-03-31 05:42] LABS: Calcium 8.6 MG/DL (8.5-10.1); Osmolality,Calculated 267.5 MOS/KG (273-304); Potassium 4.9 MMOL/L (3.5-5.1)
[2021-03-31 05:43] LABS: Albumin 1.7 G/DL (3.4-5.0); Bilirubin,Direct 0.2 MG/DL (0.0-0.20); Bilirubin,Indirect 0.9 MG/DL (0.0-1.0); Bilirubin,Total 1.1 MG/DL (0.20-1.00); Total Protein 6.7 G/DL (6.4-8.2)
[2021-03-31 07:18] LABS: Basophils % 0.3 % (0.0-0.8); Eosinophils # 0.1 10*3/uL (0.0-0.87); Eosinophils % 0.6 % (0.00-10.9); Hematocrit 37.2 VOL% (42.0-52.0); Hemoglobin 11.7 GM/DL (14.0-18.0); Immature Granulocytes % 0.8 %; Immature Granulocytes Absolute 0.07 #; Lymphocytes # 0.9 10*3/uL (1.4-4.0); Lymphocytes % 10.1 % (21.2-54.2); Mean Corpuscular HGB Conc 31.5 GM/DL (32-36); Mean Corpuscular Volume 91.6 FL (87-102); Mean Platelet Volume 11.8 FL (9.6-12.0); Monocytes % 8.7 % (1.7-12.7); Neutrophils % 79.5 % (38.7-73.9); Platelet Count 414 T/CUMM (130-400); Red Blood Count 4.06 MC/CUMM (3.8-5.5); Red Cell Distribution Width 14.6 % (9.3-17.3); White Blood Count 9.3 T/CUMM (4-12)
[2021-03-31] MEDS ORDERED: LACTATED RINGERS 1,000 ML IV SCH (08:00)
[2021-03-31 09:28] LABS: INR 1.2
[2021-03-31] MEDS: MEMANTINE 5 MG TABLET PO SCH ×2 (10:27→22:07)
[2021-03-31] MEDS: amLODIPine 5 MG TABLET PO SCH (10:27)
[2021-03-31] MEDS: FLUDROCORTISONE 0.1 MG TABLET PO SCH (10:27)
[2021-03-31] MEDS: ZINC GLUCONATE 50 MG TABLET PO SCH (10:28)
[2021-03-31] MEDS: CHOLECALCIFEROL 1,000 UNIT TABLET PO SCH (10:28)
[2021-03-31] MEDS: OMEPRAZOLE ODT 20 MG TABLET PER TUBE SCH (10:28)
[2021-03-31] MEDS: ASCORBIC ACID 500 MG TABLET PO SCH ×2 (10:28→22:07)
[2021-04-01] MEDS: ALBUTEROL INHALER 18 GM INH SCH ×2 (02:00→12:05)
[2021-04-01] MEDS: LACTULOSE 20 GM/30 ML UDCUP PO SCH ×6 (02:15→21:02)
[2021-04-01] MEDS: INSULIN REGULAR 100 UNIT/ML SUBCUT SCH ×3 (06:07→17:46)
[2021-04-01] MEDS ORDERED: LACTATED RINGERS 1,000 ML IV SCH (08:00)
[2021-04-01 10:04] LABS: INR 1.2
[2021-04-01 10:15] LABS: Calcium 8.7 MG/DL (8.5-10.1); Osmolality,Calculated 270.4 MOS/KG (273-304)
[2021-04-01] MEDS: MEMANTINE 5 MG TABLET PO SCH ×2 (10:24→20:46)
[2021-04-01] MEDS: amLODIPine 5 MG TABLET PO SCH (10:24)
[2021-04-01] MEDS: FLUDROCORTISONE 0.1 MG TABLET PO SCH (10:24)
[2021-04-01] MEDS: ASCORBIC ACID 500 MG TABLET PO SCH ×2 (10:25→20:46)
[2021-04-01] MEDS: OMEPRAZOLE ODT 20 MG TABLET PER TUBE SCH (10:25)
[2021-04-01] MEDS: CHOLECALCIFEROL 1,000 UNIT TABLET PO SCH (10:25)
[2021-04-01] MEDS: ZINC GLUCONATE 50 MG TABLET PO SCH (10:26)
[2021-04-01 12:04] LABS: Basophils % 0.3 % (0.0-0.8); Eosinophils # 0.1 10*3/uL (0.0-0.87); Hemoglobin 11.5 GM/DL (14.0-18.0); Immature Granulocytes % 0.7 %; Immature Granulocytes Absolute 0.05 #; Lymphocytes # 0.9 10*3/uL (1.4-4.0); Lymphocytes % 13.3 % (21.2-54.2); Mean Corpuscular HGB Conc 31.1 GM/DL (32-36); Mean Corpuscular Volume 93.2 FL (87-102); Mean Platelet Volume 10.5 FL (9.6-12.0); Monocytes % 9.5 % (1.7-12.7); Neutrophils % 75.2 % (38.7-73.9); Platelet Count 433 T/CUMM (130-400); Red Blood Count 3.97 MC/CUMM (3.8-5.5); Red Cell Distribution Width 14.6 % (9.3-17.3); White Blood Count 7.1 T/CUMM (4-12)
[2021-04-01] MEDS ORDERED: LIDOCAINE 2% 5 ML VIAL ONE (14:02)
[2021-04-01] MEDS ORDERED: GLYCOPYRROLATE 0.4 MG/2 ML VIAL ONE (14:02)
[2021-04-01] MEDS ORDERED: propofoL 200 MG/20 ML VIAL IV ONE (14:02)
[2021-04-01] MEDS ORDERED: ETOMIDATE 20 MG/10 ML VIAL IV ONE (14:02)
[2021-04-01] MEDS ORDERED: CIPROFLOXACIN INJ 400 MG/200 ML PREMIX IV ONE (15:00)
[2021-04-02] MEDS: INSULIN REGULAR 100 UNIT/ML SUBCUT SCH ×5 (00:58→23:49)
[2021-04-02] MEDS: LACTULOSE 20 GM/30 ML UDCUP PO SCH ×6 (02:25→21:21)
[2021-04-02 05:25] LABS: Basophils % 0.6 % (0.0-0.8); Eosinophils # 0.1 10*3/uL (0.0-0.87); Eosinophils % 1.6 % (0.00-10.9); Hematocrit 36.6 VOL% (42.0-52.0); Hemoglobin 11.6 GM/DL (14.0-18.0); Immature Granulocytes % 0.6 %; Immature Granulocytes Absolute 0.03 #; Lymphocytes # 0.9 10*3/uL (1.4-4.0); Mean Corpuscular HGB Conc 31.7 GM/DL (32-36); Mean Corpuscular Volume 91.5 FL (87-102); Mean Platelet Volume 10.8 FL (9.6-12.0); Neutrophils % 71.2 % (38.7-73.9); Platelet Count 450 T/CUMM (130-400); Red Cell Distribution Width 14.5 % (9.3-17.3)
[2021-04-02 05:45] LABS: Calcium 8.5 MG/DL (8.5-10.1); Osmolality,Calculated 271.2 MOS/KG (273-304); Potassium 4.8 MMOL/L (3.5-5.1)
[2021-04-02] MEDS: ASCORBIC ACID 500 MG TABLET PO SCH ×2 (09:46→21:21)
[2021-04-02] MEDS: ZINC GLUCONATE 50 MG TABLET PO SCH (09:46)
[2021-04-02] MEDS: MEMANTINE 5 MG TABLET PO SCH ×2 (09:47→21:21)
[2021-04-02] MEDS: CHOLECALCIFEROL 1,000 UNIT TABLET PO SCH (09:47)
[2021-04-02] MEDS: amLODIPine 5 MG TABLET PO SCH (09:47)
[2021-04-02] MEDS: OMEPRAZOLE ODT 20 MG TABLET PER TUBE SCH (09:47)
[2021-04-02] MEDS: FLUDROCORTISONE 0.1 MG TABLET PO SCH (12:55)
[2021-04-02] MEDS: MENTHOL/ZINC OXIDE OINT 71 GM JAR TOP SCH (21:19)
[2021-04-03] MEDS: LACTULOSE 20 GM/30 ML UDCUP PO SCH ×4 (01:41→14:11)
[2021-04-03 05:10] LABS: Basophils % 0.6 % (0.0-0.8); Eosinophils # 0.1 10*3/uL (0.0-0.87); Eosinophils % 1.1 % (0.00-10.9); Hematocrit 36.4 VOL% (42.0-52.0); Hemoglobin 11.3 GM/DL (14.0-18.0); Immature Granulocytes % 0.4 %; Immature Granulocytes Absolute 0.02 #; Lymphocytes # 0.8 10*3/uL (1.4-4.0); Lymphocytes % 16.6 % (21.2-54.2); Mean Corpuscular Volume 92.2 FL (87-102); Mean Platelet Volume 10.8 FL (9.6-12.0); Monocytes % 10.7 % (1.7-12.7); Neutrophils % 70.6 % (38.7-73.9); Platelet Count 454 T/CUMM (130-400); Red Blood Count 3.95 MC/CUMM (3.8-5.5); Red Cell Distribution Width 14.4 % (9.3-17.3); White Blood Count 4.7 T/CUMM (4-12)
[2021-04-03] MEDS: INSULIN REGULAR 100 UNIT/ML SUBCUT SCH ×2 (05:16→11:43)
[2021-04-03 05:30] LABS: Calcium 8.7 MG/DL (8.5-10.1); Osmolality,Calculated 268.5 MOS/KG (273-304); Potassium 4.6 MMOL/L (3.5-5.1)
[2021-04-03] MEDS: OMEPRAZOLE ODT 20 MG TABLET PER TUBE SCH (08:40)
[2021-04-03] MEDS: amLODIPine 5 MG TABLET PO SCH (08:41)
[2021-04-03] MEDS: ASCORBIC ACID 500 MG TABLET PO SCH (08:41)
[2021-04-03] MEDS: ZINC GLUCONATE 50 MG TABLET PO SCH (08:41)
[2021-04-03] MEDS: MEMANTINE 5 MG TABLET PO SCH (08:41)
[2021-04-03] MEDS: CHOLECALCIFEROL 1,000 UNIT TABLET PO SCH (08:41)
[2021-04-03] MEDS: MENTHOL/ZINC OXIDE OINT 71 GM JAR TOP SCH (08:42)
[2021-04-03] MEDS ORDERED: DEXTROSE 10% 250 ML BAG IV PRN ×2 (10:30)
[2021-04-03] MEDS: FLUDROCORTISONE 0.1 MG TABLET PO SCH (10:32)
[2021-04-03] MEDS ORDERED: ALBUTEROL 2.5 MG/3 ML NEB RESP TX SCH (13:00)
[2021-04-03 15:43] VITALS: BP 102/53
== END 2021-04-03 15:45 | DRG 177 ==
LOC: EDBD → EDUNIT# → N.ED 14:59 → SUATTDRO 22:07 → N.EDINP 22:07 → N.CC 03-19 17:57 → N.5E 03-24 22:21
PROVIDERS: ADMIT Emergency Medicine; ATTEND Internal Medicine
PROC: EGDWPEG (ICD-10-PCS; 2021-04-01 08:35)

== ENCOUNTER 2021-04-08 06:14 | Inpatient (IN) ==
[2021-04-08] MEDS ORDERED: SODIUM CHLORIDE 0.9% 1,000 ML IV STA ×2 (06:35→08:21)
[2021-04-08] MEDS ORDERED: ACETAMINOPHEN 325 MG/10.15 ML UDCUP PO STA (06:35)
[2021-04-08] MEDS ORDERED: LEVOFLOXACIN INJ 500 MG/100 ML PREMIX IV STA (06:41)
[2021-04-08] MEDS ORDERED: CLINDAMYCIN INJ 600 MG/50 ML PREMIX IV STA (06:41)
[2021-04-08 06:53] LABS: Basophils % 0.6 % (0.0-0.8); Hematocrit 37.8 VOL% (42.0-52.0); Immature Granulocytes % 0.7 %; Immature Granulocytes Absolute 0.05 #; Lymphocytes # 0.5 10*3/uL (1.4-4.0); Mean Corpuscular HGB Conc 31.7 GM/DL (32-36); Mean Corpuscular Volume 91.7 FL (87-102); Mean Platelet Volume 10.7 FL (9.6-12.0); Monocytes % 7.7 % (1.7-12.7); Platelet Count 252 T/CUMM (130-400); Red Blood Count 4.12 MC/CUMM (3.8-5.5); Red Cell Distribution Width 14.7 % (9.3-17.3); White Blood Count 7.3 T/CUMM (4-12)
[2021-04-08 07:14] LABS: Amorphous Crystals,Urine Occasional /HPF (Few); Bilirubin,Urine Negative (Negative); Blood, Urine Small mg/dL (Negative); Glucose,Urine (UA) Negative (Negative); Ketones,Urine Negative (Negative); Mucus,Urine Occasional /LPF (Occasional); Nitrite,Urine Negative (Negative); Protein,Urine 30 MG/DL; RBC,Urine 14 /HPF (0-4); Squamous Epithelial Cell,Urine Occasional /HPF (0-10); Urine Appearance CLOUDY (Clear); Urine Color Amber (Yellow); Urine Specific Gravity 1.016 (1.001-1.035)
[2021-04-08 07:17] LABS: INR 1.6; PT Patient Result 16.8 SECS (10.5-12.0)
[2021-04-08 07:21] LABS: Alanine Aminotransferase 266 U/L (16-61); Albumin 1.4 G/DL (3.4-5.0); Alkaline Phosphatase 167 U/L (45-117); Aspartate Amino Transferase 403 U/L (0-37); Blood Urea Nitrogen 44 MG/DL (7-18); Calcium 8.6 MG/DL (8.5-10.1); Carbon Dioxide 27 MMOL/L (21-32); Estimated Glom Filtration Rate 41 ML/MIN; Glucose 168 MG/DL (74-106); Osmolality,Calculated 287.8 MOS/KG (273-304); Potassium 4.8 MMOL/L (3.5-5.1); Sodium 137 MMOL/L (136-145); Total Protein 7.4 G/DL (6.4-8.2)
[2021-04-08] MEDS ORDERED: GLUCAGON 1 MG VIAL IM PRN (09:25)
[2021-04-08] MEDS ORDERED: DEXTROSE 50% 25 GM/50 ML SYRINGE IV PRN (09:25)
[2021-04-08] MEDS ORDERED: ONDANSETRON 4 MG/2 ML VIAL IV PRN (09:25)
[2021-04-08] MEDS ORDERED: PIPERACILLIN/TAZOBACTAM 3,375 MG in SODIUM CHLORIDE 0.9% 100 ML IV SCH (09:30)
[2021-04-08] MEDS ORDERED: VANCOMYCIN INJ 1,000 MG in SODIUM CHLORIDE 0.9% 250 ML IV SCH (09:30)
[2021-04-08] MEDS ORDERED: SODIUM CHLORIDE 0.9% 600 ML IV STA (09:42)
[2021-04-08] MEDS: SODIUM CHLORIDE 0.9% 1,000 ML IV SCH ×3 (10:54→18:38)
[2021-04-08] MEDS: ENOXAPARIN 40 MG/0.4 ML SYRINGE SUBCUT SCH (11:30)
[2021-04-08] MEDS: CEFEPIME 1,000 MG in SODIUM CHLORIDE 0.9% 100 ML IV SCH ×2 (11:35→22:26)
[2021-04-08] MEDS: metroNIDAZOLE INJ 500 MG/100 ML PREMIX IV SCH ×2 (11:40→22:25)
[2021-04-08] MEDS: ALBUTEROL 2.5 MG/3 ML NEB RESP TX SCH ×2 (13:30→21:17)
[2021-04-08] MEDS: VANCOMYCIN INJ 1,250 MG in SODIUM CHLORIDE 0.9% 250 ML IV SCH (13:59)
[2021-04-09] MEDS: ALBUTEROL 2.5 MG/3 ML NEB RESP TX SCH ×4 (01:11→20:27)
[2021-04-09] MEDS: CEFEPIME 1,000 MG in SODIUM CHLORIDE 0.9% 100 ML IV SCH ×2 (03:40→12:24)
[2021-04-09] MEDS: SODIUM CHLORIDE 0.9% 1,000 ML IV SCH ×4 (03:41→18:42)
[2021-04-09 06:09] LABS: Basophils % 0.4 % (0.0-0.8); Eosinophils % 0.4 % (0.00-10.9); Hematocrit 33.1 VOL% (42.0-52.0); Hemoglobin 10.2 GM/DL (14.0-18.0); Immature Granulocytes % 1.3 %; Immature Granulocytes Absolute 0.09 #; Lymphocytes # 0.7 10*3/uL (1.4-4.0); Lymphocytes % 9.5 % (21.2-54.2); Mean Corpuscular HGB Conc 30.8 GM/DL (32-36); Mean Corpuscular Volume 94.6 FL (87-102); Mean Platelet Volume 10.4 FL (9.6-12.0); Monocytes % 7.7 % (1.7-12.7); Neutrophils % 80.7 % (38.7-73.9); Platelet Count 200 T/CUMM (130-400); White Blood Count 7.1 T/CUMM (4-12)
[2021-04-09] MEDS: metroNIDAZOLE INJ 500 MG/100 ML PREMIX IV SCH ×4 (06:26→21:55)
[2021-04-09] MEDS: ENOXAPARIN 40 MG/0.4 ML SYRINGE SUBCUT SCH (09:21)
[2021-04-09] MEDS: VANCOMYCIN INJ 1,250 MG in SODIUM CHLORIDE 0.9% 250 ML IV SCH (14:48)
[2021-04-09] MEDS: ACETAMINOPHEN 650 MG SUPP RECTAL PRN (23:22)
[2021-04-10] MEDS: CEFEPIME 1,000 MG in SODIUM CHLORIDE 0.9% 100 ML IV SCH ×4 (00:14→19:37)
[2021-04-10] MEDS: ALBUTEROL 2.5 MG/3 ML NEB RESP TX SCH ×4 (02:13→19:20)
[2021-04-10] MEDS: ACETAMINOPHEN 650 MG SUPP RECTAL PRN (03:36)
[2021-04-10] MEDS: SODIUM CHLORIDE 0.9% 1,000 ML IV SCH ×2 (03:43→11:09)
[2021-04-10 05:53] LABS: Basophils % 0.4 % (0.0-0.8); Eosinophils % 0.7 % (0.00-10.9); Hematocrit 32.3 VOL% (42.0-52.0); Hemoglobin 9.7 GM/DL (14.0-18.0); Immature Granulocytes % 0.9 %; Immature Granulocytes Absolute 0.05 #; Lymphocytes # 0.7 10*3/uL (1.4-4.0); Lymphocytes % 13.7 % (21.2-54.2); Mean Platelet Volume 10.5 FL (9.6-12.0); Monocytes % 7.9 % (1.7-12.7); Neutrophils % 76.4 % (38.7-73.9); Platelet Count 208 T/CUMM (130-400); Red Cell Distribution Width 15.1 % (9.3-17.3); White Blood Count 5.3 T/CUMM (4-12)
[2021-04-10 06:10] LABS: Osmolality,Calculated 305.1 MOS/KG (273-304); Potassium 3.9 MMOL/L (3.5-5.1)
[2021-04-10] MEDS: metroNIDAZOLE INJ 500 MG/100 ML PREMIX IV SCH ×3 (06:41→22:27)
[2021-04-10] MEDS: ENOXAPARIN 40 MG/0.4 ML SYRINGE SUBCUT SCH (11:09)
[2021-04-10] MEDS: VANCOMYCIN INJ 1,250 MG in SODIUM CHLORIDE 0.9% 250 ML IV SCH (16:33)
[2021-04-10] MEDS: DEXTROSE 5% 1,000 ML IV SCH (16:45)
[2021-04-11] MEDS: ALBUTEROL 2.5 MG/3 ML NEB RESP TX SCH ×4 (01:43→19:46)
[2021-04-11] MEDS: CEFEPIME 1,000 MG in SODIUM CHLORIDE 0.9% 100 ML IV SCH ×2 (03:22→10:50)
[2021-04-11 05:40] LABS: Basophils % 0.6 % (0.0-0.8); Eosinophils # 0.1 10*3/uL (0.0-0.87); Eosinophils % 2.7 % (0.00-10.9); Hematocrit 33.2 VOL% (42.0-52.0); Immature Granulocytes % 1.6 %; Immature Granulocytes Absolute 0.08 #; Lymphocytes # 0.5 10*3/uL (1.4-4.0); Lymphocytes % 9.6 % (21.2-54.2); Mean Corpuscular HGB Conc 30.1 GM/DL (32-36); Mean Corpuscular Volume 96.2 FL (87-102); Mean Platelet Volume 10.7 FL (9.6-12.0); Monocytes % 6.3 % (1.7-12.7); Neutrophils % 79.2 % (38.7-73.9); Platelet Count 202 T/CUMM (130-400); Red Blood Count 3.45 MC/CUMM (3.8-5.5); White Blood Count 4.9 T/CUMM (4-12)
[2021-04-11] MEDS: metroNIDAZOLE INJ 500 MG/100 ML PREMIX IV SCH ×2 (05:54→14:43)
[2021-04-11 05:55] LABS: Calcium 8.5 MG/DL (8.5-10.1); Osmolality,Calculated 299.6 MOS/KG (273-304)
[2021-04-11 05:57] LABS: Albumin 1.1 G/DL (3.4-5.0); Bilirubin,Total 0.5 MG/DL (0.20-1.00); Calcium 8.3 MG/DL (8.5-10.1); Osmolality,Calculated 297.7 MOS/KG (273-304); Total Protein 6.1 G/DL (6.4-8.2)
[2021-04-11] MEDS: ENOXAPARIN 40 MG/0.4 ML SYRINGE SUBCUT SCH (09:50)
[2021-04-11] MEDS: VANCOMYCIN INJ 1,250 MG in SODIUM CHLORIDE 0.9% 250 ML IV SCH (15:26)
[2021-04-11] MEDS: DEXTROSE 5% 1,000 ML IV SCH (22:41)
[2021-04-12] MEDS: ALBUTEROL 2.5 MG/3 ML NEB RESP TX SCH ×4 (01:04→19:57)
[2021-04-12] MEDS: VANCOMYCIN INJ 1,250 MG in SODIUM CHLORIDE 0.9% 250 ML IV SCH ×2 (03:45→16:06)
[2021-04-12 06:59] LABS: Albumin 1.2 G/DL (3.4-5.0); Bilirubin,Total 0.9 MG/DL (0.20-1.00); Calcium 8.1 MG/DL (8.5-10.1); Osmolality,Calculated 294.8 MOS/KG (273-304); Potassium 4.3 MMOL/L (3.5-5.1); Total Protein 6.2 G/DL (6.4-8.2)
[2021-04-12] MEDS: ENOXAPARIN 40 MG/0.4 ML SYRINGE SUBCUT SCH (09:22)
[2021-04-12 09:40] LABS: Basophils % 0.4 % (0.0-0.8); Eosinophils # 0.1 10*3/uL (0.0-0.87); Eosinophils % 1.5 % (0.00-10.9); Hematocrit 32.7 VOL% (42.0-52.0); Hemoglobin 9.8 GM/DL (14.0-18.0); Immature Granulocytes % 1.1 %; Immature Granulocytes Absolute 0.06 #; Lymphocytes # 0.7 10*3/uL (1.4-4.0); Lymphocytes % 14.1 % (21.2-54.2); Mean Corpuscular Volume 96.5 FL (87-102); Mean Platelet Volume 11.8 FL (9.6-12.0); Monocytes % 8.6 % (1.7-12.7); Neutrophils % 74.3 % (38.7-73.9); Platelet Count 205 T/CUMM (130-400); Red Blood Count 3.39 MC/CUMM (3.8-5.5); Red Cell Distribution Width 15.2 % (9.3-17.3); White Blood Count 5.3 T/CUMM (4-12)
[2021-04-12 12:26] LABS: Hepatitis B Core IgM Quant 0.21 Index; Hepatitis B Surface Ag Quant 0.17 Index; Hepatitis B Surface Ag Result Non-Reactive (NonReactive); Hepatitis C Virus Ab Result Non-Reactive (NonReactive)
[2021-04-12] MEDS: ACETAMINOPHEN 650 MG SUPP RECTAL PRN (12:54)
[2021-04-12 13:13] LABS: Bilirubin,Urine Negative (Negative); Blood, Urine Moderate mg/dL (Negative); Glucose,Urine (UA) Negative (Negative); Ketones,Urine Negative (Negative); Mucus,Urine Many /LPF (Occasional); Nitrite,Urine Negative (Negative); Protein,Urine Negative; RBC,Urine 51 /HPF (0-4); Urine Appearance CLOUDY (Clear); Urine Color Amber (Yellow); Urine Specific Gravity 1.014 (1.001-1.035); Urine Urobilinogen < 2.0 EU/DL (<2.0)
[2021-04-12] MEDS: MEROPENEM 500 MG in SODIUM CHLORIDE 0.9% 100 ML IV SCH ×2 (15:14→21:30)
[2021-04-12] MEDS: DEXTROSE 5% 1,000 ML IV SCH (21:30)
[2021-04-13] MEDS: ALBUTEROL 2.5 MG/3 ML NEB RESP TX SCH ×4 (01:24→19:05)
[2021-04-13] MEDS: MEROPENEM 500 MG in SODIUM CHLORIDE 0.9% 100 ML IV SCH ×4 (02:23→20:55)
[2021-04-13] MEDS: VANCOMYCIN INJ 1,250 MG in SODIUM CHLORIDE 0.9% 250 ML IV SCH ×2 (03:54→17:16)
[2021-04-13 05:51] LABS: Basophils % 0.3 % (0.0-0.8); Eosinophils # 0.1 10*3/uL (0.0-0.87); Eosinophils % 1.7 % (0.00-10.9); Hematocrit 29.1 VOL% (42.0-52.0); Hemoglobin 8.7 GM/DL (14.0-18.0); Immature Granulocytes % 1.6 %; Immature Granulocytes Absolute 0.09 #; Lymphocytes # 0.7 10*3/uL (1.4-4.0); Lymphocytes % 11.8 % (21.2-54.2); Mean Corpuscular HGB Conc 29.9 GM/DL (32-36); Mean Corpuscular Volume 95.4 FL (87-102); Mean Platelet Volume 10.5 FL (9.6-12.0); Neutrophils % 75.6 % (38.7-73.9); Platelet Count 243 T/CUMM (130-400); Red Blood Count 3.05 MC/CUMM (3.8-5.5); Red Cell Distribution Width 15.5 % (9.3-17.3); White Blood Count 5.8 T/CUMM (4-12)
[2021-04-13 06:21] LABS: Albumin 1.1 G/DL (3.4-5.0); Bilirubin,Total 0.6 MG/DL (0.20-1.00); Calcium 8.2 MG/DL (8.5-10.1); Osmolality,Calculated 290.3 MOS/KG (273-304); Potassium 4.1 MMOL/L (3.5-5.1)
[2021-04-13] MEDS: ENOXAPARIN 40 MG/0.4 ML SYRINGE SUBCUT SCH (08:30)
[2021-04-13] MEDS: DEXTROSE 5% 1,000 ML IV SCH (15:15)
[2021-04-13] MEDS: ACETAMINOPHEN 325 MG TABLET PEG PRN (21:14)
[2021-04-14] MEDS: ALBUTEROL 2.5 MG/3 ML NEB RESP TX SCH ×4 (00:45→19:48)
[2021-04-14] MEDS: MEROPENEM 500 MG in SODIUM CHLORIDE 0.9% 100 ML IV SCH ×4 (02:36→21:49)
[2021-04-14] MEDS: ACETAMINOPHEN 325 MG TABLET PEG PRN (04:34)
[2021-04-14 08:02] LABS: Basophils % 0.2 % (0.0-0.8); Eosinophils # 0.1 10*3/uL (0.0-0.87); Eosinophils % 1.4 % (0.00-10.9); Hematocrit 31.9 VOL% (42.0-52.0); Hemoglobin 9.4 GM/DL (14.0-18.0); Immature Granulocytes % 0.9 %; Immature Granulocytes Absolute 0.05 #; Lymphocytes # 0.7 10*3/uL (1.4-4.0); Lymphocytes % 11.5 % (21.2-54.2); Mean Corpuscular HGB Conc 29.5 GM/DL (32-36); Mean Corpuscular Volume 95.5 FL (87-102); Monocytes % 7.8 % (1.7-12.7); Neutrophils % 78.2 % (38.7-73.9); Platelet Count 205 T/CUMM (130-400); Red Blood Count 3.34 MC/CUMM (3.8-5.5); Red Cell Distribution Width 15.5 % (9.3-17.3); White Blood Count 5.7 T/CUMM (4-12)
[2021-04-14 08:20] LABS: Risk Ratio 4.69
[2021-04-14 09:31] LABS: Calcium 7.7 MG/DL (8.5-10.1); Osmolality,Calculated 290.1 MOS/KG (273-304); Potassium 4.8 MMOL/L (3.5-5.1)
[2021-04-14] MEDS: MEMANTINE 5 MG TABLET PER TUBE SCH ×2 (10:09→21:50)
[2021-04-14] MEDS: LACTULOSE 20 GM/30 ML UDCUP PEG SCH (10:09)
[2021-04-14] MEDS: ASCORBIC ACID 500 MG TABLET PEG SCH ×2 (10:09→21:50)
[2021-04-14] MEDS: FLUDROCORTISONE 0.1 MG TABLET PEG SCH (10:10)
[2021-04-14] MEDS: ENOXAPARIN 40 MG/0.4 ML SYRINGE SUBCUT SCH (10:10)
[2021-04-14] MEDS: VANCOMYCIN INJ 1,250 MG in SODIUM CHLORIDE 0.9% 250 ML IV SCH (14:14)
[2021-04-14] MEDS: CHOLECALCIFEROL 1,000 UNIT TABLET PEG SCH (14:40)
[2021-04-14] MEDS: NYSTATIN POWDER 15 GM BOTTLE TOP SCH ×2 (14:41→21:51)
[2021-04-14] MEDS ORDERED: FLUCONAZOLE 150 MG TABLET PO ONE (15:00)
[2021-04-14] MEDS ORDERED: FUROSEMIDE 40 MG TABLET PO ONE (15:00)
[2021-04-14] MEDS ORDERED: BISACODYL 10 MG SUPP RECTAL ONE (15:00)
[2021-04-14] MEDS ORDERED: MINERAL OIL ENEMA 133 ML BOTTLE RECTAL ONE (16:29)
[2021-04-14] MEDS: DEXTROSE 5% 1,000 ML IV SCH (20:50)
[2021-04-15] MEDS: ACETAMINOPHEN 325 MG TABLET PEG PRN ×2 (00:03→22:45)
[2021-04-15] MEDS: ALBUTEROL 2.5 MG/3 ML NEB RESP TX SCH ×4 (00:16→19:48)
[2021-04-15] MEDS: MEROPENEM 500 MG in SODIUM CHLORIDE 0.9% 100 ML IV SCH ×4 (03:03→21:30)
[2021-04-15] MEDS: VANCOMYCIN INJ 1,250 MG in SODIUM CHLORIDE 0.9% 250 ML IV SCH ×2 (04:55→22:44)
[2021-04-15 05:30] LABS: Basophils % 0.2 % (0.0-0.8); Eosinophils # 0.1 10*3/uL (0.0-0.87); Eosinophils % 1.2 % (0.00-10.9); Hematocrit 30.2 VOL% (42.0-52.0); Immature Granulocytes Absolute 0.06 #; Lymphocytes # 0.6 10*3/uL (1.4-4.0); Lymphocytes % 10.7 % (21.2-54.2); Mean Corpuscular HGB Conc 29.8 GM/DL (32-36); Mean Corpuscular Volume 95.6 FL (87-102); Mean Platelet Volume 11.2 FL (9.6-12.0); Monocytes % 7.9 % (1.7-12.7); Platelet Count 258 T/CUMM (130-400); Red Blood Count 3.16 MC/CUMM (3.8-5.5); Red Cell Distribution Width 15.6 % (9.3-17.3); White Blood Count 5.8 T/CUMM (4-12)
[2021-04-15] MEDS: CHOLECALCIFEROL 1,000 UNIT TABLET PEG SCH (09:04)
[2021-04-15] MEDS: FLUDROCORTISONE 0.1 MG TABLET PEG SCH (09:05)
[2021-04-15] MEDS: MEMANTINE 5 MG TABLET PER TUBE SCH ×2 (09:08→21:30)
[2021-04-15] MEDS: ASCORBIC ACID 500 MG TABLET PEG SCH ×2 (09:08→21:30)
[2021-04-15] MEDS: LACTULOSE 20 GM/30 ML UDCUP PEG SCH (09:15)
[2021-04-15] MEDS: NYSTATIN POWDER 15 GM BOTTLE TOP SCH ×3 (09:15→21:29)
[2021-04-15] MEDS: ENOXAPARIN 40 MG/0.4 ML SYRINGE SUBCUT SCH (09:20)
[2021-04-16] MEDS: ALBUTEROL 2.5 MG/3 ML NEB RESP TX SCH ×4 (01:27→20:45)
[2021-04-16] MEDS: MEROPENEM 500 MG in SODIUM CHLORIDE 0.9% 100 ML IV SCH ×4 (02:03→22:35)
[2021-04-16 06:50] LABS: Basophils % 0.2 % (0.0-0.8); Eosinophils % 0.7 % (0.00-10.9); Hematocrit 30.2 VOL% (42.0-52.0); Hemoglobin 9.1 GM/DL (14.0-18.0); Immature Granulocytes % 1.6 %; Lymphocytes # 0.6 10*3/uL (1.4-4.0); Lymphocytes % 9.6 % (21.2-54.2); Mean Corpuscular HGB Conc 30.1 GM/DL (32-36); Mean Corpuscular Volume 95.3 FL (87-102); Mean Platelet Volume 11.3 FL (9.6-12.0); Monocytes % 6.8 % (1.7-12.7); Neutrophils % 81.1 % (38.7-73.9); Platelet Count 281 T/CUMM (130-400); Red Blood Count 3.17 MC/CUMM (3.8-5.5); Red Cell Distribution Width 15.5 % (9.3-17.3); White Blood Count 6.2 T/CUMM (4-12)
[2021-04-16 07:16] LABS: Calcium 8.2 MG/DL (8.5-10.1); Osmolality,Calculated 282.7 MOS/KG (273-304); Potassium 4.3 MMOL/L (3.5-5.1)
[2021-04-16 07:20] LABS: Albumin 1.1 G/DL (3.4-5.0); Bilirubin,Direct 0.13 MG/DL (0.0-0.20); Bilirubin,Indirect 0.3 MG/DL (0.0-1.0); Bilirubin,Total 0.4 MG/DL (0.20-1.00); Total Protein 5.9 G/DL (6.4-8.2)
[2021-04-16] MEDS: NYSTATIN POWDER 15 GM BOTTLE TOP SCH ×3 (09:36→22:34)
[2021-04-16] MEDS: FLUDROCORTISONE 0.1 MG TABLET PEG SCH (09:37)
[2021-04-16] MEDS: ASCORBIC ACID 500 MG TABLET PEG SCH ×2 (09:37→22:34)
[2021-04-16] MEDS: CHOLECALCIFEROL 1,000 UNIT TABLET PEG SCH (09:37)
[2021-04-16] MEDS: MEMANTINE 5 MG TABLET PER TUBE SCH ×2 (09:37→22:34)
[2021-04-16] MEDS: LACTULOSE 20 GM/30 ML UDCUP PEG SCH (09:38)
[2021-04-16] MEDS: ENOXAPARIN 40 MG/0.4 ML SYRINGE SUBCUT SCH (09:38)
[2021-04-16] MEDS ORDERED: SODIUM CHLORIDE 0.9% 500 ML IV ONE (17:16)
[2021-04-16] MEDS: VANCOMYCIN INJ 1,250 MG in SODIUM CHLORIDE 0.9% 250 ML IV SCH (18:23)
[2021-04-17] MEDS: ALBUTEROL 2.5 MG/3 ML NEB RESP TX SCH ×3 (00:38→13:50)
[2021-04-17] MEDS: MEROPENEM 500 MG in SODIUM CHLORIDE 0.9% 100 ML IV SCH (04:12)
[2021-04-17 05:41] LABS: Basophils % 0.3 % (0.0-0.8); Eosinophils % 0.4 % (0.00-10.9); Hematocrit 31.5 VOL% (42.0-52.0); Hemoglobin 9.5 GM/DL (14.0-18.0); Immature Granulocytes % 1.6 %; Immature Granulocytes Absolute 0.12 #; Lymphocytes # 0.8 10*3/uL (1.4-4.0); Lymphocytes % 10.2 % (21.2-54.2); Mean Corpuscular HGB Conc 30.2 GM/DL (32-36); Mean Corpuscular Volume 94.9 FL (87-102); Mean Platelet Volume 10.8 FL (9.6-12.0); Monocytes % 5.3 % (1.7-12.7); Neutrophils % 82.2 % (38.7-73.9); Platelet Count 342 T/CUMM (130-400); Red Blood Count 3.32 MC/CUMM (3.8-5.5); Red Cell Distribution Width 15.9 % (9.3-17.3); White Blood Count 7.3 T/CUMM (4-12)
[2021-04-17 05:59] LABS: Calcium 8.3 MG/DL (8.5-10.1); Potassium 4.8 MMOL/L (3.5-5.1)
[2021-04-17] MEDS ORDERED: FUROSEMIDE 40 MG/4 ML VIAL IV ONE (08:20)
[2021-04-17] MEDS: ENOXAPARIN 40 MG/0.4 ML SYRINGE SUBCUT SCH (10:08)
[2021-04-17] MEDS: LACTULOSE 20 GM/30 ML UDCUP PEG SCH (10:08)
[2021-04-17] MEDS: MEMANTINE 5 MG TABLET PER TUBE SCH (10:09)
[2021-04-17] MEDS: ASCORBIC ACID 500 MG TABLET PEG SCH (10:09)
[2021-04-17] MEDS: NYSTATIN POWDER 15 GM BOTTLE TOP SCH (10:09)
[2021-04-17] MEDS: CHOLECALCIFEROL 1,000 UNIT TABLET PEG SCH (10:09)
[2021-04-17] MEDS: FLUDROCORTISONE 0.1 MG TABLET PEG SCH (10:09)
[2021-04-17 12:45] VITALS: BP 137/74
== END 2021-04-17 14:45 | DRG 871 ==
LOC: EDBD → EDUNIT# → N.ED 06:14 → N.EDINP 09:25 → SUATTDRO 09:25 → N.5E 15:40
PROVIDERS: ADMIT Internal Medicine; ATTEND Internal Medicine

== ENCOUNTER 2021-04-21 13:44 | Inpatient (IN) ==
[2021-04-21] MEDS ORDERED: SODIUM CHLORIDE 0.9% 1,000 ML IV STA (14:29)
[2021-04-21 14:51] LABS: Basophils % 0.4 % (0.0-0.8); Hematocrit 32.2 VOL% (42.0-52.0); Hemoglobin 9.9 GM/DL (14.0-18.0); Immature Granulocytes % 0.9 %; Immature Granulocytes Absolute 0.09 #; Lymphocytes % 9.8 % (21.2-54.2); Mean Corpuscular HGB Conc 30.7 GM/DL (32-36); Mean Corpuscular Volume 93.6 FL (87-102); Mean Platelet Volume 12.3 FL (9.6-12.0); Monocytes % 7.6 % (1.7-12.7); Neutrophils % 81.3 % (38.7-73.9); Platelet Count 134 T/CUMM (130-400); Red Blood Count 3.44 MC/CUMM (3.8-5.5); Red Cell Distribution Width 16.8 % (9.3-17.3); White Blood Count 10.5 T/CUMM (4-12)
[2021-04-21 14:54] LABS: Albumin 1.2 G/DL (3.4-5.0); Bilirubin,Total 0.9 MG/DL (0.20-1.00); Calcium 8.6 MG/DL (8.5-10.1); Osmolality,Calculated 289.5 MOS/KG (273-304); Potassium 5.8 MMOL/L (3.5-5.1); Total Protein 7.4 G/DL (6.4-8.2)
[2021-04-21 15:20] LABS: Amorphous Crystals,Urine Occasional /HPF (Few); Bacteria,Urine Moderate /HPF (Few); Bilirubin,Urine Negative (Negative); Blood, Urine Small mg/dL (Negative); Glucose,Urine (UA) Negative (Negative); Ketones,Urine Negative (Negative); Mucus,Urine Occasional /LPF (Occasional); Nitrite,Urine Negative (Negative); Protein,Urine 30 MG/DL; RBC,Urine 13 /HPF (0-4); Squamous Epithelial Cell,Urine Occasional /HPF (0-10); Urine Appearance CLOUDY (Clear); Urine Color Amber (Yellow); Urine Specific Gravity 1.016 (1.001-1.035)
[2021-04-21] MEDS ORDERED: MORPHINE 2 MG/1 ML SYRINGE IV PRN (16:44)
[2021-04-21] MEDS ORDERED: ONDANSETRON 4 MG/2 ML VIAL IV PRN (16:44)
[2021-04-21] MEDS ORDERED: GLUCAGON 1 MG VIAL IM PRN (16:44)
[2021-04-21] MEDS ORDERED: SODIUM POLYSTYRENE SULFATE 15 GM/60 ML BOTTLE PO ONE (16:47)
[2021-04-21] MEDS ORDERED: DEXTROSE 10% 250 ML BAG IV PRN (16:50)
[2021-04-21] MEDS: SODIUM CHLORIDE 0.9% 1,000 ML IV SCH (17:20)
[2021-04-21] MEDS: ENOXAPARIN 40 MG/0.4 ML SYRINGE SUBCUT SCH (17:25)
[2021-04-21 22:17] LABS: Hepatitis B Core IgM Quant 0.21 Index; Hepatitis B Surface Ag Quant < 0.10 Index; Hepatitis B Surface Ag Result Non-Reactive (NonReactive); Hepatitis C Virus Ab Result Non-Reactive (NonReactive)
[2021-04-21] MEDS: NYSTATIN POWDER 15 GM BOTTLE TOP SCH (22:18)
[2021-04-21] MEDS: ASCORBIC ACID 500 MG TABLET PEG SCH (22:18)
[2021-04-21] MEDS: MEMANTINE 10 MG TABLET PER TUBE SCH (22:18)
[2021-04-21] MEDS: risperiDONE 1 MG TABLET PEG SCH (22:18)
[2021-04-22] MEDS: SODIUM CHLORIDE 0.9% 1,000 ML IV SCH (02:50)
[2021-04-22 05:29] LABS: Basophils % 0.3 % (0.0-0.8); Eosinophils % 0.3 % (0.00-10.9); Hematocrit 30.1 VOL% (42.0-52.0); Hemoglobin 8.8 GM/DL (14.0-18.0); Immature Granulocytes % 0.8 %; Immature Granulocytes Absolute 0.08 #; Lymphocytes # 0.8 10*3/uL (1.4-4.0); Lymphocytes % 7.4 % (21.2-54.2); Mean Corpuscular HGB Conc 29.2 GM/DL (32-36); Mean Corpuscular Volume 97.1 FL (87-102); Mean Platelet Volume 11.1 FL (9.6-12.0); Monocytes % 6.1 % (1.7-12.7); Neutrophils % 85.1 % (38.7-73.9); Platelet Count 339 T/CUMM (130-400); Red Cell Distribution Width 16.9 % (9.3-17.3); White Blood Count 10.2 T/CUMM (4-12)
[2021-04-22 05:55] LABS: Albumin 1.1 G/DL (3.4-5.0); Bilirubin,Total 0.8 MG/DL (0.20-1.00); Calcium 8.2 MG/DL (8.5-10.1); Osmolality,Calculated 300.6 MOS/KG (273-304); Potassium 4.1 MMOL/L (3.5-5.1); Total Protein 6.4 G/DL (6.4-8.2)
[2021-04-22] MEDS: LACTULOSE 20 GM/30 ML UDCUP PEG SCH (10:22)
[2021-04-22] MEDS: FLUDROCORTISONE 0.1 MG TABLET PEG SCH (10:22)
[2021-04-22] MEDS: ASCORBIC ACID 500 MG TABLET PEG SCH ×2 (10:22→21:55)
[2021-04-22] MEDS: CHOLECALCIFEROL 1,000 UNIT TABLET PEG SCH (10:22)
[2021-04-22] MEDS: PANTOPRAZOLE 40 MG TABLET PO SCH (10:22)
[2021-04-22] MEDS: NYSTATIN POWDER 15 GM BOTTLE TOP SCH ×3 (10:23→21:54)
[2021-04-22] MEDS: MEMANTINE 10 MG TABLET PER TUBE SCH ×2 (10:23→21:55)
[2021-04-22] MEDS: cefTRIAXone 1,000 MG in SODIUM CHLORIDE 0.9% 100 ML IV SCH (14:53)
[2021-04-22] MEDS: ENOXAPARIN 40 MG/0.4 ML SYRINGE SUBCUT SCH (17:56)
[2021-04-22] MEDS: risperiDONE 1 MG TABLET PEG SCH (21:55)
[2021-04-23 06:23] LABS: Basophils % 0.3 % (0.0-0.8); Eosinophils # 0.1 10*3/uL (0.0-0.87); Eosinophils % 0.9 % (0.00-10.9); Hematocrit 28.5 VOL% (42.0-52.0); Hemoglobin 8.2 GM/DL (14.0-18.0); Immature Granulocytes % 1.5 %; Immature Granulocytes Absolute 0.12 #; Lymphocytes # 0.7 10*3/uL (1.4-4.0); Lymphocytes % 9.4 % (21.2-54.2); Mean Corpuscular HGB Conc 28.8 GM/DL (32-36); Mean Corpuscular Volume 98.3 FL (87-102); Mean Platelet Volume 10.5 FL (9.6-12.0); Monocytes % 5.6 % (1.7-12.7); Neutrophils % 82.3 % (38.7-73.9); Platelet Count 358 T/CUMM (130-400); Red Cell Distribution Width 16.6 % (9.3-17.3); White Blood Count 7.8 T/CUMM (4-12)
[2021-04-23 06:30] LABS: Albumin 1.1 G/DL (3.4-5.0); Bilirubin,Total 0.4 MG/DL (0.20-1.00); Calcium 8.5 MG/DL (8.5-10.1); Osmolality,Calculated 309.1 MOS/KG (273-304); Potassium 2.9 MMOL/L (3.5-5.1); Total Protein 6.2 G/DL (6.4-8.2)
[2021-04-23] MEDS ORDERED: POTASSIUM CHLORIDE 20 MEQ TABLET PO PRN (07:42)
[2021-04-23] MEDS ORDERED: SODIUM CHLORIDE 0.45% 1,000 ML IV SCH (08:00)
[2021-04-23] MEDS: ASCORBIC ACID 500 MG TABLET PEG SCH ×2 (08:21→21:55)
[2021-04-23] MEDS: CHOLECALCIFEROL 1,000 UNIT TABLET PEG SCH (08:21)
[2021-04-23] MEDS: FLUDROCORTISONE 0.1 MG TABLET PEG SCH (08:22)
[2021-04-23] MEDS: LACTULOSE 20 GM/30 ML UDCUP PEG SCH (08:22)
[2021-04-23] MEDS: MEMANTINE 10 MG TABLET PER TUBE SCH ×2 (08:22→21:55)
[2021-04-23] MEDS: PANTOPRAZOLE 40 MG TABLET PO SCH (08:22)
[2021-04-23] MEDS: NYSTATIN POWDER 15 GM BOTTLE TOP SCH ×3 (08:22→21:54)
[2021-04-23] MEDS ORDERED: POTASSIUM BICARB EFFERVESCENT 20 MEQ TAB.EFF PO PRN (09:30)
[2021-04-23] MEDS: POTASSIUM BICARB EFFERVESCENT 25 MEQ TAB.EFF PO SCH ×3 (11:57→22:17)
[2021-04-23] MEDS: INSULIN LISPRO 100 UNIT/ML SUBCUT SCH ×3 (11:57→21:54)
[2021-04-23] MEDS: ALBUTEROL/IPRATROPIUM 3 ML NEB RESP TX SCH ×2 (14:24→19:14)
[2021-04-23] MEDS: cefTRIAXone 1,000 MG in SODIUM CHLORIDE 0.9% 100 ML IV SCH (14:53)
[2021-04-23] MEDS: ENOXAPARIN 40 MG/0.4 ML SYRINGE SUBCUT SCH (17:54)
[2021-04-23] MEDS: risperiDONE 1 MG TABLET PEG SCH (21:55)
[2021-04-24] MEDS: ALBUTEROL/IPRATROPIUM 3 ML NEB RESP TX SCH ×2 (02:01→07:49)
[2021-04-24] MEDS ORDERED: POTASSIUM BICARB EFFERVESCENT 20 MEQ TAB.EFF PO ONE (04:30)
[2021-04-24 05:57] LABS: Albumin 1.1 G/DL (3.4-5.0); Bilirubin,Total 0.7 MG/DL (0.20-1.00); Calcium 8.2 MG/DL (8.5-10.1); Osmolality,Calculated 307.9 MOS/KG (273-304); Potassium 4.7 MMOL/L (3.5-5.1)
[2021-04-24 06:11] LABS: Basophils % 0.3 % (0.0-0.8); Eosinophils # 0.1 10*3/uL (0.0-0.87); Eosinophils % 1.7 % (0.00-10.9); Hemoglobin 8.1 GM/DL (14.0-18.0); Immature Granulocytes % 1.2 %; Immature Granulocytes Absolute 0.08 #; Lymphocytes # 0.8 10*3/uL (1.4-4.0); Lymphocytes % 10.8 % (21.2-54.2); Mean Corpuscular HGB Conc 28.5 GM/DL (32-36); Mean Corpuscular Volume 99.6 FL (87-102); Mean Platelet Volume 10.7 FL (9.6-12.0); Monocytes % 7.1 % (1.7-12.7); Neutrophils % 78.9 % (38.7-73.9); Platelet Count 353 T/CUMM (130-400); Red Blood Count 2.85 MC/CUMM (3.8-5.5); Red Cell Distribution Width 16.6 % (9.3-17.3); White Blood Count 6.9 T/CUMM (4-12)
[2021-04-24 06:26] LABS: Hematocrit 28.4 VOL% (42.0-52.0)
[2021-04-24 06:40] LABS: Platelet Estimate Normal
[2021-04-24 06:41] LABS: Anisocytosis 2+; Macrocytosis Slight
[2021-04-24] MEDS: LACTULOSE 20 GM/30 ML UDCUP PEG SCH (09:39)
[2021-04-24] MEDS: MEMANTINE 10 MG TABLET PER TUBE SCH (09:39)
[2021-04-24] MEDS: INSULIN LISPRO 100 UNIT/ML SUBCUT SCH (09:39)
[2021-04-24] MEDS: FLUDROCORTISONE 0.1 MG TABLET PEG SCH (09:39)
[2021-04-24] MEDS: PANTOPRAZOLE 40 MG TABLET PO SCH (09:40)
[2021-04-24] MEDS: NYSTATIN POWDER 15 GM BOTTLE TOP SCH (09:40)
[2021-04-24] MEDS: ASCORBIC ACID 500 MG TABLET PEG SCH (09:40)
[2021-04-24] MEDS: CHOLECALCIFEROL 1,000 UNIT TABLET PEG SCH (09:40)
[2021-04-24 11:58] VITALS: BP 108/66
[2021-04-26 10:36] LABS: Smooth Muscle Antibody Negative (Negative)
[2021-04-26 16:01] LABS: Mitochondrial Antibody (M2) <0.1 U
[2021-04-27 11:21] LABS: Antinuclear Ab, S 0.4 U
== END 2021-04-24 12:24 | disposition hospice, inpatient (51) | DRG 193 ==
LOC: SUATTDRO → EDUNIT# → EDBD → N.ED 13:44 → N.5E 16:42 → SUATTDRO 16:42 → N.5E 20:42
PROVIDERS: ADMIT Internal Medicine; ATTEND Internal Medicine